=== PATIENT | female | born 1990 | race African-American/Black ===

== ENCOUNTER 2016-12-02 18:45 | Emergency (ER) | payer MEDICAID ==
[~2016-12-02] VITALS: Ht 162.6 cm; Wt 60.0 kg
[~2016-12-02 18:45] MED LIST: INFL100P IV; PERC5TAB12 PO; ZOFR4TAB3 SL
[2016-12-02 18:48] VITALS: BP 146/83; PULSE 123; RESP 14; TEMP 98.2; O2SAT 98
[2016-12-02] MEDS ORDERED: BACT800T5 PO (20:39)
[2016-12-02] MEDS ORDERED: CEPH-460 PO (20:39)
--- NOTE | 2016-12-02 20:42 | PD ---
HPI Chief Complaint: Skin Problem Time Seen by Provider: 20:40 Travel History International Travel<30 days: No Contact w/Intl Traveler<30days: No Traveled to known affect area: No History of Present Illness HPI 25-year-old black female presents to emergency Department with complaints of a area redness and pain to her right inner thigh for the last few days. She states that it started off as a small pruritic lump. She states that she scratched it vigorously. It now has become increasing painful, red and swollen. Some small amount of pus discharge. She denies any fever or chills. No nausea vomiting. Denies . PFSH Past Medical History Narrative Medical uLCERATIVE COLITIS, ANXIETY Anxiety: Yes Cancer: No Cardiovascular Problems: No Diminished Hearing: No Endocrine: No Immune Disorder: No Implanted Vascular Access Dvce: No Musculoskeletal: No Neurologic: No Reproductive: No Respiratory: No Immunizations Current: No Tetanus Vaccination: < 5 Years : 3 Para: 1 Miscarriage: 1 Ectopic : Yes Past Surgical History Gynecologic Surgery: Yes (left oopherctomy 2012) Pacemaker: No Other Surgery: No Social History Alcohol Use: No Tobacco Use: No Substance Use: No Allergies-Medications (Allergen,Severity, Reaction): Coded Allergies: No Known Allergies (Verified , 12/02/16) Reported Meds & Prescriptions Reported Meds & Active Scripts Active No Active Prescriptions or Reported Medications Review of Systems ROS Limitations: Unresponsive Except as stated in HPI: all other systems reviewed are Neg Physical Exam Narrative GENERAL: This is a well-nourished, well-developed patient, in no apparent distress. SKIN: Patient has a 5 cm area of erythema with a indurated area measuring 1.5 x 1.5 cm. It is tender. No warmth. No fluctuance or pointing. HEAD: Atraumatic. Normocephalic. EYES: PERRL, EOMI, no discharge or injection. No scleral icterus. EARS: Clear NOSE: Nasal turbinates appear normal. THROAT: Mucosa pink and moist. Airway patent. NECK: Trachea midline. supple, moves head freely. LUNGS: Clear to auscultation. CV: Regular in rhythm. ABDOMEN: Soft nontender. EXT: No clubbing cyanosis or edema. Data Data Last Documented VS Vital Signs Date Time Temp Pulse Resp B/P Pulse Ox O2 Delivery O2 Flow Rate FiO2 12/02/16 18:48 98.2 123 14 146/83 98 MDM Medical Decision Making Medical Screen Exam Complete: Yes Emergency Medical Condition: Yes Medical Record Reviewed: Yes Differential Diagnosis MDM: High Differential diagnoses: Abscess, folliculitis, cellulitis, lymphangitis, abrasion, contact dermatitis Narrative Course Patient appears to be having a developing abscess. Diagnosis Primary Impression: right inner thigh abscess Patient Instructions: General Instructions Additional Instructions: Rest. Elevation. keep clean and dry. Ichthammol-like drawing salve Daily wound care with soap, water. Three Advil every 6 hours. Bactrim DS and Keflex.. Follow-up with a primary care doctor in one week. Return to the ER for any problems. Med/Other Pt SpecificInfo: Prescription(s) given, Wound Care Scripts Cephalexin (Keflex)500 Mg [id number] Mg PO Q6H #28 CAP Prov:La Nena Gonzales MD 12/02/16 Sulfamethoxazole-Trimethoprim (Bactrim DS)800-160 Mg Tab1 Tab PO BID #14 TAB Prov:La Nena Gonzales MD 12/02/16 Disposition: 01 DISCHARGE HOME Condition: Stable Luan Leo Dec 02, 2016 20:42
== END 2016-12-02 20:51 | disposition home or self-care (01) ==
LOC: NEPB 18:45
DX: L02.415 Cutaneous abscess of right lower limb (principal)
CPT/HCPCS: 99283

== ENCOUNTER 2017-04-22 15:45 | Emergency (ER) | payer MEDICAID ==
[~2017-04-22] VITALS: Ht 162.6 cm; Wt 55.0 kg
[~2017-04-22 15:45] MED LIST changes: -PERC5TAB12 PO; -ZOFR4TAB3 SL
[2017-04-22 15:47] VITALS: BP 124/83; PULSE 101; RESP 16; TEMP 98.7; O2SAT 98
[2017-04-22] MEDS ORDERED: SODIUM CHLOR 0.9% 1000 ML INJ 1,000 ML IV SCH (17:44)
[2017-04-22] MEDS ORDERED: SODIUM CHLORIDE 0.9% FLUSH 10 ML FLUSH IV FLUSH PRN (17:45)
[2017-04-22] MEDS ORDERED: MORPHINE SULFATE 8 MG/ML INJ IV PUSH ONE ×2 (17:45→21:00)
[2017-04-22] MEDS ORDERED: ONDANSETRON HCL 4 MG/2 ML VIAL IVP ONE (17:45)
--- NOTE | 2017-04-22 17:59 | PD ---
HPI Chief Complaint: GI Complaint Time Seen by Provider: 17:36 Travel History International Travel<30 days: No Contact w/Intl Traveler<30days: No Traveled to known affect area: No History of Present Illness HPI Patient is a 26 year old female with history of Ulcerative Colitis, presents to ER with c/o of lower abdominal pain. She reports that she follows with Dr. Gab Tan and does take medications for her UC. Patient reports that she woke up this morning with nausea and vomiting and diarrhea. Reports that her diarrhea is not bloody. Reports that symptoms are similar to when she has had UC flair ups in the past. Patient denies fever/chills. Denies dysuria/urgency/ freq. No other c/o. PFSH Past Medical History Anxiety: Yes Cancer: No Cardiovascular Problems: No Diminished Hearing: No Endocrine: No Gastrointestinal Disorders: Yes (UC) Genitourinary: No Immune Disorder: Yes (UC) Implanted Vascular Access Dvce: No Musculoskeletal: No Neurologic: No Reproductive: No Respiratory: No Immunizations Current: No ?: Not LMP: ON DEPO : 3 Para: 1 Miscarriage: 2 Ectopic : Yes Past Surgical History Gynecologic Surgery: Yes (OOPHARECTONY left only) Pacemaker: No Other Surgery: Yes Social History Alcohol Use: No Tobacco Use: No Substance Use: No Allergies-Medications (Allergen,Severity, Reaction): Coded Allergies: No Known Allergies (Verified , 04/22/17) Reported Meds & Prescriptions Reported Meds & Active Scripts Active Tylenol-Codeine #3 (Acetaminophen-Codeine) 300-30 mg Tab 1 Tab PO Q6HR PRN Zofran (Ondansetron HCl) 4 Mg Tab 4 Mg PO Q6HR PRN Reported Remicade Inj (Infliximab) 100 Mg Inj 300 Mg IV EVERY 8 WEEKS Review of Systems General / Constitutional: No: Fever Eyes: No: Visual changes HENT: No: Headaches Cardiovascular: No: Chest Pain or Discomfort Respiratory: No: Shortness of Breath Gastrointestinal: Positive: Nausea, Vomiting, Diarrhea, Abdominal Pain Genitourinary: No: Dysuria Musculoskeletal: No: Pain Skin: No Rash Neurologic: No: Weakness Psychiatric: No: Depression Endocrine: No: Polydipsia Hematologic/Lymphatic: No: Easy Bruising Physical Exam Narrative GENERAL: Moderate distress SKIN: Focused skin assessment warm/dry. HEAD: Atraumatic. Normocephalic. EYES: Pupils equal and round. No scleral icterus. No injection or drainage. ENT: No nasal bleeding or discharge. Mucous membranes pink and moist. NECK: Trachea midline. No JVD. CARDIOVASCULAR: Regular rate and rhythm. No murmur appreciated. RESPIRATORY: No accessory muscle use. Clear to auscultation. Breath sounds equal bilaterally. GASTROINTESTINAL: Abdomen soft, diffuse lower abdominal tenderness, nondistended. Hepatic and splenic margins not palpable. MUSCULOSKELETAL: No obvious deformities. No clubbing. No cyanosis. No edema. NEUROLOGICAL: Awake and alert. No obvious cranial nerve deficits. Motor grossly within normal limits. Normal speech. PSYCHIATRIC: Appropriate mood and affect; insight and judgment normal. Data Data Last Documented VS Vital Signs Date Time Temp Pulse Resp B/P Pulse Ox O2 Delivery O2 Flow Rate FiO2 04/22/17 19:44 88 18 141/76 100 Room Air 04/22/17 15:47 98.7 Orders Complete Blood Count With Diff (04/22/17 17:44) Comprehensive Metabolic Panel (04/22/17 17:44) Lipase (04/22/17 17:44) Prothrombin Time / Inr (Pt) (04/22/17 17:44) Act Partial Throm Time (Ptt) (04/22/17 17:44) Urinalysis - C+S If Indicated (04/22/17 17:44) Ct Abd/Pel W Iv Contrast(Rout) (04/22/17 17:44) Iv Access Insert/Monitor (04/22/17 17:44) Ecg Monitoring (04/22/17 17:44) Oximetry (04/22/17 17:44) NPO (04/22/17 17:44) Ondansetron Inj (Zofran Inj) (04/22/17 17:45) Sodium Chlor 0.9% 1000 Ml Inj (Ns 1000 M (04/22/17 17:44) Sodium Chloride 0.9% Flush (Ns Flush) (04/22/17 17:45) Ed Urine Pregnancytest Poc (04/22/17 17:44) Morphine Inj (Morphine Inj) (04/22/17 17:45) Promethazine (Phenergan) (04/22/17 18:30) Lorazepam Inj (Ativan Inj) (04/22/17 19:00) Sodium Chlor 0.9% 1000 Ml Inj (Ns 1000 M (04/22/17 19:15) Iohexol 350 Inj (Omnipaque 350 Inj) (04/22/17 19:58) Morphine Inj (Morphine Inj) (04/22/17 21:00) Ns (Bolus) Inj (04/22/17 21:30) Labs Laboratory Tests Test 04/22/17 04/22/17 17:50 20:33 White Blood Count 9.0 TH/MM3 Red Blood Count 4.18 MIL/MM3 Hemoglobin 11.2 GM/DL Hematocrit 33.9 % Mean Corpuscular Volume 81.1 FL Mean Corpuscular Hemoglobin 26.9 PG Mean Corpuscular Hemoglobin 33.1 % Concent Red Cell Distribution Width 16.4 % Platelet Count 440 TH/MM3 Mean Platelet Volume 8.0 FL Neutrophils (%) (Auto) 73.4 % Lymphocytes (%) (Auto) 20.6 % Monocytes (%) (Auto) 5.3 % Eosinophils (%) (Auto) 0.3 % Basophils (%) (Auto) 0.4 % Neutrophils # (Auto) 6.6 TH/MM3 Lymphocytes # (Auto) 1.8 TH/MM3 Monocytes # (Auto) 0.5 TH/MM3 Eosinophils # (Auto) 0.0 TH/MM3 Basophils # (Auto) 0.0 TH/MM3 CBC Comment DIFF FINAL Differential Comment Prothrombin Time 11.7 SEC Prothromb Time International 1.1 RATIO Ratio Activated Partial 28.9 SEC Thromboplast Time Sodium Level 136 MEQ/L Potassium Level 3.4 MEQ/L Chloride Level 103 MEQ/L Carbon Dioxide Level 22.2 MEQ/L Anion Gap 11 MEQ/L Blood Urea Nitrogen 10 MG/DL Creatinine 0.54 MG/DL Estimat Glomerular Filtration 164 ML/MIN Rate Random Glucose 95 MG/DL Calcium Level 8.9 MG/DL Total Bilirubin 0.4 MG/DL Aspartate Amino Transf 18 U/L (AST/SGOT) Alanine Aminotransferase 22 U/L (ALT/SGPT) Alkaline Phosphatase 72 U/L Total Protein 8.5 GM/DL Albumin 3.7 GM/DL Lipase 85 U/L Urine Color LIGHT-YELLOW Urine Turbidity CLEAR Urine pH 6.5 Urine Specific [place] 1.043 Urine Protein NEG mg/dL Urine Glucose (UA) NEG mg/dL Urine Ketones 40 mg/dL Urine Occult Blood TRACE Urine Nitrite NEG Urine Bilirubin NEG Urine Urobilinogen LESS THAN 2.0 MG/DL Urine Leukocyte Esterase NEG Urine RBC 1 /hpf Urine WBC LESS THAN 1 /hpf Urine Squamous Epithelial 1 /hpf Cells Urine Hyaline Casts 1 /lpf Urine Mucus FEW /lpf Microscopic Urinalysis Comment CULT NOT INDICATED MDM Medical Decision Making Medical Screen Exam Complete: Yes Emergency Medical Condition: Yes Interpretation(s) Vital Signs Date Time Temp Pulse Resp B/P Pulse Ox O2 Delivery O2 Flow Rate FiO2 04/22/17 15:47 98.7 101 16 124/83 98 Room Air Differential Diagnosis Differential includes ulcerative colitis, colitis, uti, viral syndrome, gastroenteritis Narrative Course Patient is a 26 year old female with history of UC, presents to ER with c/o of lower abdominal pain. Reports that symptoms began this am, patient uncomfortable at bedside, lab work including ct ordered. IVF and pain medications and antiemetics ordered. Vital Signs Date Time Temp Pulse Resp B/P Pulse Ox O2 Delivery O2 Flow Rate FiO2 04/22/17 19:44 88 18 141/76 100 Room Air 04/22/17 19:38 82 100 Room Air 04/22/17 18:19 100 Room Air 04/22/17 15:47 98.7 101 16 124/83 98 Room Air Laboratory Tests Test 04/22/17 04/22/17 17:50 20:33 White Blood Count 9.0 TH/MM3 (4.0-11.0) Red Blood Count 4.18 MIL/MM3 (4.00-5.30) Hemoglobin 11.2 GM/DL (11.6-15.3) Hematocrit 33.9 % (35.0-46.0) Mean Corpuscular Volume 81.1 FL (80.0-100.0) Mean Corpuscular Hemoglobin 26.9 PG (27.0-34.0) Mean Corpuscular Hemoglobin 33.1 % Concent (32.0-36.0) Red Cell Distribution Width 16.4 % (11.6-17.2) Platelet Count 440 TH/MM3 (150-450) Mean Platelet Volume 8.0 FL (7.0-11.0) Neutrophils (%) (Auto) 73.4 % (16.0-70.0) Lymphocytes (%) (Auto) 20.6 % (9.0-44.0) Monocytes (%) (Auto) 5.3 % (0.0-8.0) Eosinophils (%) (Auto) 0.3 % (0.0-4.0) Basophils (%) (Auto) 0.4 % (0.0-2.0) Neutrophils # (Auto) 6.6 TH/MM3 (1.8-7.7) Lymphocytes # (Auto) 1.8 TH/MM3 (1.0-4.8) Monocytes # (Auto) 0.5 TH/MM3 (0-0.9) Eosinophils # (Auto) 0.0 TH/MM3 (0-0.4) Basophils # (Auto) 0.0 TH/MM3 (0-0.2) CBC Comment DIFF FINAL Differential Comment Prothrombin Time 11.7 SEC (9.8-11.6) Prothromb Time International 1.1 RATIO Ratio Activated Partial 28.9 SEC Thromboplast Time (24.3-30.1) Sodium Level 136 MEQ/L (136-145) Potassium Level 3.4 MEQ/L (3.5-5.1) Chloride Level 103 MEQ/L (98-107) Carbon Dioxide Level 22.2 MEQ/L (21.0-32.0) Anion Gap 11 MEQ/L (5-15) Blood Urea Nitrogen 10 MG/DL (7-18) Creatinine 0.54 MG/DL (0.50-1.00) Estimat Glomerular Filtration 164 ML/MIN Rate (>89) Random Glucose 95 MG/DL (74-106) Calcium Level 8.9 MG/DL (8.5-10.1) Total Bilirubin 0.4 MG/DL (0.2-1.0) Aspartate Amino Transf 18 U/L (15-37) (AST/SGOT) Alanine Aminotransferase 22 U/L (10-53) (ALT/SGPT) Alkaline Phosphatase 72 U/L (45-117) Total Protein 8.5 GM/DL (6.4-8.2) Albumin 3.7 GM/DL (3.4-5.0) Lipase 85 U/L (73-393) Urine Color LIGHT-YELLOW (YELLW/STRAW) Urine Turbidity CLEAR (CLEAR) Urine pH 6.5 (5.0-8.5) Urine Specific [place] 1.043 (1.002-1.035) Urine Protein NEG mg/dL (NEG-TRACE) Urine Glucose (UA) NEG mg/dL (NEG) Urine Ketones 40 mg/dL (NEG) Urine Occult Blood TRACE (NEG) Urine Nitrite NEG (NEG) Urine Bilirubin NEG (NEG) Urine Urobilinogen LESS THAN 2.0 MG/DL (LESS THAN 2.0) Urine Leukocyte Esterase NEG (NEG) Urine RBC 1 /hpf (0-3) Urine WBC LESS THAN 1 /hpf (0-5) Urine Squamous Epithelial 1 /hpf (0-5) Cells Urine Hyaline Casts 1 /lpf (RARE) Urine Mucus FEW /lpf (OCC) Microscopic Urinalysis Comment CULT NOT INDICATED Last Impressions Abdomen/Pelvis CT 04/22/17 3066 Signed Impressions: Service Date/Time: Saturday, April 22, 2017 19:50 - CONCLUSION: 1. Abnormal bowel wall thickening seen circumferentially involving the rectum and adjacent inflammatory stranding and hyperemia. This is consistent with proctitis. No obvious abscess or free air. Emeterio Roy MD Patient re-evaluated, all labs and studies reviewed as well as incidental findings. Patient with CT findings, abnormal bowel wall thickening seen circumferentially involving the rectum and adjacent inflammatory stranding and hyperemia consistent with proctitis most likely from her UC. I did give patient a copy of her CT report. Patient understands need to follow-up with her GI physician as soon as possible. Signs and symptoms of when to return to emergency room was reviewed patient in detail. Diagnosis Primary Impression: Abdominal pain Qualified Code: R10.84 - Generalized abdominal pain Additional Impressions: Proctitis Dehydration Nausea & vomiting Patient Instructions: Narcotic given in the ED, General Instructions Additional Instructions: Please give patient a copy of her lab work and studies at discharge Please return to ER as needed Please follow up with your design assistant as soon as possible Return to ER if symptoms worsen or persist Please follow up with your primary care doctor Med/Other Pt SpecificInfo: Prescription(s) given Scripts Acetaminophen-Codeine (Tylenol-Codeine #3)300-30 mg Tab1 Tab PO Q6HR PRN (PAIN) #6 TAB Ref 0 Prov:Nabila Hackett DO 04/22/17 Ondansetron (Zofran)4 Mg Tab4 Mg PO Q6HR PRN (NAUSEA OR VOMITING) #12 TAB Ref 0 Prov:Nabila Hackett DO 04/22/17 Disposition: 01 DISCHARGE HOME Condition: Stable Nabila Hackett DO Apr 22, 2017 17:59
[2017-04-22 18:19] VITALS: O2SAT 100
[2017-04-22 18:21] LABS: AUTOMATED NEUTROPHIL # 6.6 TH/MM3 (1.8-7.7); BASOPHIL % 0.4 % (0.0-2.0); EOSINOPHIL % 0.3 % (0.0-4.0); HEMATOCRIT 33.9 % (35.0-46.0); HEMO FLAGS DIFF FINAL; LYMPH % 20.6 % (9.0-44.0); LYMPHOCYTE # 1.8 TH/MM3 (1.0-4.8); MEAN CELL VOLUME 81.1 FL (80.0-100.0); MEAN CORPUSCULAR HEMOGLOBIN 26.9 PG (27.0-34.0); MEAN CORPUSCULAR HGB CONC 33.1 % (32.0-36.0); MONO % 5.3 % (0.0-8.0); NEUT % 73.4 % (16.0-70.0); PLATELET COUNT 440 TH/MM3 (150-450); RED BLOOD COUNT 4.18 MIL/MM3 (4.00-5.30); RED CELL DISTRIBUTION WIDTH 16.4 % (11.6-17.2)
[2017-04-22] MEDS ORDERED: PROMETHAZINE HCL 25 MG TAB PO ONE (18:30)
[2017-04-22 18:37] LABS: APTT (PATIENT) 28.9 SEC (24.3-30.1); INTERNATIONAL NORMALIZED RATIO 1.1 RATIO; PROTHROMBIN TIME - PATIENT 11.7 SEC (9.8-11.6)
[2017-04-22 18:38] LABS: ANION GAP 11 MEQ/L (5-15); AST (GOT) 18 U/L (15-37); BICARBONATE 22.2 MEQ/L (21.0-32.0); BLOOD UREA NITROGEN 10 MG/DL (7-18); CHLORIDE 103 MEQ/L (98-107); GLOMERULAR FILTRATION RATE 164 ML/MIN (>89); POTASSIUM 3.4 MEQ/L (3.5-5.1); SODIUM (NA) 136 MEQ/L (136-145)
[2017-04-22 18:41] LABS: ALKALINE PHOSPHATASE 72 U/L (45-117); ALT (GPT) 22 U/L (10-53); TOTAL BILIRUBIN ADULT 0.4 MG/DL (0.2-1.0)
[2017-04-22] MEDS ORDERED: LORazepam 2 MG/ML VIAL IV PUSH ONE (19:00)
[2017-04-22] MEDS ORDERED: SODIUM CHLOR 0.9% 1000 ML INJ 1,000 ML IV ONE ×2 (19:15→21:30)
[2017-04-22 19:38] VITALS: PULSE 82; O2SAT 100
[2017-04-22 19:44] VITALS: BP 141/76; PULSE 88; RESP 18; O2SAT 100
[2017-04-22] MEDS ORDERED: IOHEXOL 350 MG/ML 10 ML VIAL (for RAD DIAG) IV ONE (19:58)
--- NOTE | 2017-04-22 20:13 | RADRPT ---
EXAM DATE/TIME: 04/22/2017 19:50 [place] COMPARISON: No previous studies available for comparison. INDICATIONS : Nausea,vomiting and diarrhea today IV CONTRAST: 71 cc Omnipaque 350 (iohexol) IV ORAL CONTRAST: No oral contrast ingested. RADIATION DOSE: 6.64 CTDIvol (mGy) MEDICAL HISTORY : Crohn's disease. SURGICAL HISTORY : oopharectomy Left ENCOUNTER: Initial ACUITY: 1 day PAIN SCALE: 10/10 LOCATION: Abdomen TECHNIQUE: Volumetric scanning of the abdomen and pelvis was performed. Using automated exposure control and ad justment of the mA and/or kV according to patient size, radiation dose was kept as low as reasonably achievable to obtain optimal diagnostic quality images. DICOM format image data is available electro nically for review and comparison. FINDINGS: Liver, gallbladder, spleen, pancreas, adrenal glands are unremarkable. No evidence of bowel obstructi on, free fluid or free air. Kidneys are unremarkable. No adenopathy or aneurysm. Urinary bladder, [place] unremarkable. The ovaries are not clearly visualized. There is abnormal circumferential bowel wal l thickening, hyperemia and perirectal fat stranding identified. The bowel wall thickening is noted i nvolving the rectum. Proctitis is suspected. CONCLUSION: 1. Abnormal bowel wall thickening seen circumferentially involving the rectum and adjacent inflammato ry stranding and hyperemia. This is consistent with proctitis. No obvious abscess or free air. Emeterio Roy MD on April 22, 2017 at 20:09 Board Certified Radiologist. This report was verified electronically.
[2017-04-22 20:58] LABS: BLOOD, URINE TRACE (NEG); COMMENT (UR) CULT NOT INDICATED; CULTURE IF INDICATED CULT NOT INDICATED; GLUCOSE,URINE NEG (NEG); HYALINE CAST, URINE 1 /lpf (RARE); KETONE, URINE 40 mg/dL (NEG); MUCUS URINE FEW /lpf (OCC); NITRITE,URINE NEG (NEG); PH, URINE 6.5 (5.0-8.5); SQUAMOUS EPITHELIAL CELL URINE 1 /hpf (0-5); URINE COLOR LIGHT-YELLOW (YELLW/STRAW)
[2017-04-22] MEDS ORDERED: TYLETAB34 PO (21:15)
[2017-04-22] MEDS ORDERED: ZOFR4TAB PO (21:15)
== END 2017-04-22 22:20 | disposition home or self-care (01) ==
LOC: NEPD 15:45
DX: R10.84 Generalized abdominal pain (principal); K62.89 Other specified diseases of anus and rectum; E86.0 Dehydration; R11.2 Nausea with vomiting, unspecified; R19.7 Diarrhea, unspecified; F41.9 Anxiety disorder, unspecified; Z79.899 Other long term (current) drug therapy
CPT/HCPCS: 74177; 80053; 81001; 83690; 84703; 85025; 85610; 85730; 96361; 96374; 96375; 96376; J2060; J2270; J2405; J7030; Q0169; Q9967

== ENCOUNTER 2017-04-24 09:10 | Observation (INO) | payer MEDICAID ==
[~2017-04-24 09:10] MED LIST changes: +TYLETAB34 PO; +ZOFR4TAB PO
[2017-04-24 09:13] VITALS: BP 130/90; PULSE 93; RESP 24; TEMP 98.7; O2SAT 100
--- NOTE | 2017-04-24 09:35 | PD ---
HPI Chief Complaint: GI Complaint Time Seen by Provider: 09:27 Travel History International Travel<30 days: No Contact w/Intl Traveler<30days: No Traveled to known affect area: No History of Present Illness HPI 26-year-old female came to the emergency room with history of vomiting, abdominal pain that has been going on for past 3-4 days. Patient was seen in this emergency room 2 days ago for the same thing. She had blood work and CAT scan done at that time. Everything was within normal limit and she was discharged home. She went back to [facility] emergency room yesterday where again similar workup was initiated and she was discharged home. Today she is here because she continues to vomit. All this history has been given by her mother since patient seems to be in distress and is curled up in a position under a thick blanket that she has brought from home. Mom also says that she has been very depressed and anxious for white some time. She has a 10- month-old baby. Upon asking mom said she has not been suicidal. She does have history of depression and anxiety and was supposed to be on Xanax and a lot of that was stopped during the and patient never resumed it since she does not have a primary care doctor. Vital signs are stable. [facility] Past Medical History Narrative Medical List of her past medical, surgical, social and family history reviewed from the nursing note. Anxiety: Yes Cancer: No Cardiovascular Problems: No Diminished Hearing: No Endocrine: No Gastrointestinal Disorders: Yes (UC) Genitourinary: No Immune Disorder: Yes (UC) Implanted Vascular Access Dvce: No Musculoskeletal: No Neurologic: No Reproductive: No Respiratory: No Immunizations Current: No ?: Not LMP: "ON DEPO" : 3 Para: 1 Miscarriage: 2 Ectopic : Yes Past Surgical History Gynecologic Surgery: Yes (OOPHARECTONY left only) Pacemaker: No Other Surgery: Yes Social History Alcohol Use: No Tobacco Use: No Substance Use: No Allergies-Medications (Allergen,Severity, Reaction): Coded Allergies: No Known Allergies (Verified , 04/24/17) Comments No known drug allergies. Reported Meds & Prescriptions Reported Meds & Active Scripts Active Reported Remicade Inj (Infliximab) 100 Mg Inj 300 Mg IV EVERY 8 WEEKS Narrative Medication List of her home medications reviewed from the nursing note. Review of Systems Except as stated in HPI: all other systems reviewed are Neg Physical Exam Narrative GENERAL: Prefers to keep her eyes closed and curled in a position. Not answering questions SKIN: Focused skin assessment warm/dry. HEAD: Atraumatic. Normocephalic. EYES: Pupils equal and round. No scleral icterus. No injection or drainage. ENT: No nasal bleeding or discharge. Mucous membranes pink and moist. NECK: Trachea midline. No JVD. CARDIOVASCULAR: Regular rate and rhythm. No murmur appreciated. RESPIRATORY: No accessory muscle use. Clear to auscultation. Breath sounds equal bilaterally. GASTROINTESTINAL: Abdomen soft, non-tender, nondistended. Hepatic and splenic margins not palpable. MUSCULOSKELETAL: No obvious deformities. No clubbing. No cyanosis. No edema. NEUROLOGICAL: Awake and alert. No obvious cranial nerve deficits. Motor grossly within normal limits. Normal speech. PSYCHIATRIC: Appropriate mood and affect; insight and judgment normal. Data Data Last Documented VS Vital Signs Date Time Temp Pulse Resp B/P Pulse Ox O2 Delivery O2 Flow Rate FiO2 04/24/17 11:40 70 18 143/87 99 Room Air 04/24/17 10:03 98.3 Orders Complete Blood Count With Diff (04/24/17 09:39) Comprehensive Metabolic Panel (04/24/17 09:39) Lipase (04/24/17 09:39) Iv Access Insert/Monitor (04/24/17 09:39) Ecg Monitoring (04/24/17 09:39) Oximetry (04/24/17 09:39) Sodium Chlor 0.9% 1000 Ml Inj (Ns 1000 M (04/24/17 09:39) Sodium Chloride 0.9% Flush (Ns Flush) (04/24/17 09:45) Metoclopramide Inj (Reglan Inj) (04/24/17 09:45) Urinalysis - C+S If Indicated (04/24/17 09:39) Drug Screen, Random Urine (04/24/17 09:39) Alprazolam (Xanax) (04/24/17 10:30) Sodium Chlor 0.9% 1000 Ml Inj (Ns 1000 M (04/24/17 12:15) Admit Order (Ed Use Only) (04/24/17 12:08) Place In Observation (04/24/17 ) Vital Signs (Adult) Q4H (04/24/17 12:09) Activity Oob Ad Shayy (04/24/17 12:09) Intake + Output GINGER.QSHIFT (04/24/17 12:09) Notify Dr: Other (04/24/17 12:09) Diet Npo (04/24/17 Lunch) Sodium Chlor 0.9% 1000 Ml Inj (Ns 1000 M (04/24/17 12:09) Sodium Chloride 0.9% Flush (Ns Flush) (04/24/17 12:15) Sodium Chloride 0.9% Flush (Ns Flush) (04/24/17 21:00) Acetaminophen (Tylenol) (04/24/17 12:15) Ondansetron Inj (Zofran Inj) (04/24/17 12:15) Comprehensive Metabolic Panel (04/25/17 06:00) Complete Blood Count With Diff (04/25/17 06:00) Dietary (Dietitian) Consult (04/24/17 12:09) Scd Bilateral/Knee High GINGER.BID (04/24/17 12:09) Naloxone Inj (Narcan Inj) (04/24/17 12:15) Docusate Sodium-Senna (Pinky-Colace) (04/24/17 21:00) Magnesium Hydroxide Liq (Milk Of Magnesi (04/24/17 12:15) Sennosides (Senokot) (04/24/17 12:15) Bisacodyl Supp (Dulcolax Supp) (04/24/17 12:15) Lactulose Liq (Lactulose Liq) (04/24/17 12:15) Labs Laboratory Tests Test 04/24/17 04/24/17 09:59 11:20 White Blood Count 6.8 TH/MM3 Red Blood Count 4.28 MIL/MM3 Hemoglobin 11.5 GM/DL Hematocrit 34.6 % Mean Corpuscular Volume 80.9 FL Mean Corpuscular Hemoglobin 26.9 PG Mean Corpuscular Hemoglobin 33.2 % Concent Red Cell Distribution Width 16.5 % Platelet Count 413 TH/MM3 Mean Platelet Volume 8.0 FL Neutrophils (%) (Auto) 58.4 % Lymphocytes (%) (Auto) 33.5 % Monocytes (%) (Auto) 7.6 % Eosinophils (%) (Auto) 0.3 % Basophils (%) (Auto) 0.2 % Neutrophils # (Auto) 4.0 TH/MM3 Lymphocytes # (Auto) 2.3 TH/MM3 Monocytes # (Auto) 0.5 TH/MM3 Eosinophils # (Auto) 0.0 TH/MM3 Basophils # (Auto) 0.0 TH/MM3 CBC Comment DIFF FINAL Differential Comment Sodium Level 133 MEQ/L Potassium Level 3.4 MEQ/L Chloride Level 97 MEQ/L Carbon Dioxide Level 23.7 MEQ/L Anion Gap 12 MEQ/L Blood Urea Nitrogen 9 MG/DL Creatinine 0.62 MG/DL Estimat Glomerular Filtration 140 ML/MIN Rate Random Glucose 80 MG/DL Calcium Level 8.7 MG/DL Magnesium Level 2.2 MG/DL Total Bilirubin 0.8 MG/DL Aspartate Amino Transf 12 U/L (AST/SGOT) Alanine Aminotransferase 22 U/L (ALT/SGPT) Alkaline Phosphatase 76 U/L Total Protein 9.3 GM/DL Albumin 3.9 GM/DL Lipase 270 U/L Urine Color LIGHT-YELLOW Urine Turbidity HAZY Urine pH 6.5 Urine Specific [place] 1.012 Urine Protein TRACE mg/dL Urine Glucose (UA) NEG mg/dL Urine Ketones 80 mg/dL Urine Occult Blood SMALL Urine Nitrite NEG Urine Bilirubin NEG Urine Urobilinogen LESS THAN 2.0 MG/DL Urine Leukocyte Esterase NEG Urine RBC LESS THAN 1 /hpf Urine WBC 2 /hpf Urine Squamous Epithelial 2 /hpf Cells Urine Transitional Epithelial <1 /hpf Cells Urine Bacteria RARE /hpf Urine Mucus FEW /lpf Microscopic Urinalysis Comment CULT NOT INDICATED Urine Opiates Screen NEG Urine Barbiturates Screen NEG Urine Amphetamines Screen NEG Urine Benzodiazepines Screen POS Urine Cocaine Screen NEG Urine Cannabinoids Screen NEG [facility] Medical Decision Making Medical Screen Exam Complete: Yes Emergency Medical Condition: Yes Medical Record Reviewed: Yes Differential Diagnosis Acute gastritis, cyclic vomiting syndrome, major depression, electrolyte abnormality, dehydration Narrative Course 12:18 PM patient was given Reglan for nausea since as per the mother Zofran didn 't seem to help last time. She was also given IV fluid bolus. Blood test results came back and she had mild hyponatremia and hypokalemia. UA shows ketonuria. Patient was given by mouth challenge and she started vomiting again after that. At this point I decided to admit her since this is her third visit to the emergency room. She obviously is failing the outpatient treatment at this point. Spoke with the hospitalist was accepted the case. Procedures EKG Prior to Arrival: No Diagnosis Primary Impression: Intractable vomiting Qualified Code: G43.A1 - Intractable cyclical vomiting with nausea Additional Impressions: Abdominal pain Qualified Code: R10.84 - Generalized abdominal pain Dehydration Ketonuria Failure of outpatient treatment Admitting Information Admitting Physician Requests: Ryann Varela MD Apr 24, 2017 09:35
[2017-04-24] MEDS ORDERED: SODIUM CHLOR 0.9% 1000 ML INJ 1,000 ML IV SCH (09:39)
[2017-04-24] MEDS ORDERED: METOCLOPRAMIDE HCL 10 MG/2 ML VIAL IV PUSH ONE (09:45)
[2017-04-24] MEDS ORDERED: SODIUM CHLORIDE 0.9% FLUSH 10 ML FLUSH IV FLUSH PRN ×2 (09:45→12:15)
[2017-04-24 10:03] VITALS: BP 145/86; PULSE 88; RESP 18; TEMP 98.3; O2SAT 100
[2017-04-24 10:17] LABS: BASOPHIL % 0.2 % (0.0-2.0); EOSINOPHIL % 0.3 % (0.0-4.0); HEMATOCRIT 34.6 % (35.0-46.0); HEMO FLAGS DIFF FINAL; LYMPH % 33.5 % (9.0-44.0); LYMPHOCYTE # 2.3 TH/MM3 (1.0-4.8); MEAN CELL VOLUME 80.9 FL (80.0-100.0); MEAN CORPUSCULAR HEMOGLOBIN 26.9 PG (27.0-34.0); MEAN CORPUSCULAR HGB CONC 33.2 % (32.0-36.0); MONO % 7.6 % (0.0-8.0); NEUT % 58.4 % (16.0-70.0); PLATELET COUNT 413 TH/MM3 (150-450); RED BLOOD COUNT 4.28 MIL/MM3 (4.00-5.30); RED CELL DISTRIBUTION WIDTH 16.5 % (11.6-17.2); WHITE BLOOD COUNT 6.8 TH/MM3 (4.0-11.0)
[2017-04-24] MEDS ORDERED: ALPRAZolam 0.5 MG TAB PO ONE (10:30)
[2017-04-24 10:37] LABS: ALKALINE PHOSPHATASE 76 U/L (45-117); ALT (GPT) 22 U/L (10-53); ANION GAP 12 MEQ/L (5-15); AST (GOT) 12 U/L (15-37); BICARBONATE 23.7 MEQ/L (21.0-32.0); BLOOD UREA NITROGEN 9 MG/DL (7-18); CHLORIDE 97 MEQ/L (98-107); GLOMERULAR FILTRATION RATE 140 ML/MIN (>89); POTASSIUM 3.4 MEQ/L (3.5-5.1); SODIUM (NA) 133 MEQ/L (136-145); TOTAL BILIRUBIN ADULT 0.8 MG/DL (0.2-1.0)
[2017-04-24 11:40] VITALS: BP 143/87; PULSE 70; RESP 18; O2SAT 99
[2017-04-24 11:43] LABS: BACTERIA, URINE RARE /hpf; BLOOD, URINE SMALL (NEG); GLUCOSE,URINE NEG (NEG); KETONE, URINE 80 mg/dL (NEG); MUCUS URINE FEW /lpf (OCC); NITRITE,URINE NEG (NEG); PH, URINE 6.5 (5.0-8.5); SQUAMOUS EPITHELIAL CELL URINE 2 /hpf (0-5); TRANSITIONAL EPI CELLS, URINE <1 /hpf; URINE COLOR LIGHT-YELLOW (YELLW/STRAW)
[2017-04-24 11:46] LABS: COMMENT (UR) CULT NOT INDICATED; CULTURE IF INDICATED CULT NOT INDICATED
[2017-04-24] MEDS: SODIUM CHLOR 0.9% 1000 ML INJ 1,000 ML IV SCH (12:09)
[2017-04-24] MEDS ORDERED: NALOXONE HCL 0.4 MG/ML AMP IV PRN (12:15)
[2017-04-24] MEDS ORDERED: LACTULOSE SYRUP 20 GM/30 ML CUP PO PRN (12:15)
[2017-04-24] MEDS ORDERED: SENNOSIDES 8.6 MG TAB PO PRN (12:15)
[2017-04-24] MEDS ORDERED: ACETAMINOPHEN 325 MG TAB PO PRN (12:15)
[2017-04-24] MEDS ORDERED: SODIUM CHLOR 0.9% 1000 ML INJ 1,000 ML IV ONE (12:15)
[2017-04-24] MEDS ORDERED: MAGNESIUM HYDROXIDE SUSP 30 ML CUP PO PRN (12:15)
[2017-04-24] MEDS ORDERED: BISACODYL 10 MG SUPP RECTAL PRN (12:15)
--- NOTE | 2017-04-24 12:23 | HHI.HP ---
Nausea, vomit and Diarrhea HPI Service [facility] Primary Care Physician No Primary Care Physician Admission Diagnosis intractable vomiting and abdominal pain, dehydration Diagnoses: Chief Complaint: Intractable Nausea, vomit and Diarrhea. Travel History International Travel<30 Days: No Contact w/Intl Traveler <30 Da: No Traveled to Known Affected Are: No History of Present Illness This is a pleasant 26 y/o Female with Ulcerative Colitis, presents to Emergency Room with Left lower abdominal pain She came to ER on 04/22/17 with Nausea and vomit and Diarrhea, she was given symptomatic medicine and was discharged Home and today came back to the Hospital with the same symptomatology. associated abdominal pain for the last 3 to 4 days She was seen at [facility] Emergency Room yesterday and was discharged home, she continue vomiting. The patient has been anxious and depressed, She has a [id number] baby. Upon asking mom said she has not been suicidal. She does have history of depression and anxiety and was supposed to be on Xanax and a lot of that was stopped during the and patient never resumed it since she does not have a primary care doctor. Vital signs are stable. The patient was seen in Emergency room in the presence of her mother Mrs. Tali Sorto, confirm what was expressed by her Daughter, she also states she had as GI specialist Doctor Gba De La Paz but now has not GI specialist due to that lost coverage asking for pain medicine. Review of Systems Gastrointestinal: COMPLAINS OF: Diarrhea, Nausea, Vomiting Except as stated in HPI: all other systems reviewed are Neg Past Family Social History Past Medical History Anxiety Ulcerative Colitis Past Surgical History Left Oophorectomy C Section Reported Medications Reported Meds & Active Scripts Active Reported Remicade Inj (Infliximab) 100 Mg Inj 300 Mg IV EVERY 8 WEEKS Allergies: Coded Allergies: No Known Allergies (Verified , 04/24/17) Active Ordered Medications Current Medications Medications (Trade) Dose Ordered Sig/Uziel Route Start Time Stop Time Status Last Admin Sodium Chloride 2 ml 2 ml UNSCH PRN IV FLUSH 04/24/17 09:45 Sodium Chloride 1,000 ml @ 999 mls/hr BOLUS ONCE IV 04/24/17 12:15 04/24/17 13:15 (NS 1000 ml Inj) 1,000 ml @ 100 mls/hr Q10H IV 04/24/17 12:09 UNV (NS Flush) 2 ml UNSCH PRN IV FLUSH 04/24/17 12:15 UNV (NS Flush) 2 ml BID IV FLUSH 04/24/17 21:00 UNV (Tylenol) 650 mg Q4H PRN PO 04/24/17 12:15 UNV (Zofran Inj) 4 mg Q6H PRN IVP 04/24/17 12:15 UNV (Narcan Inj) 0.4 mg UNSCH PRN IV 04/24/17 12:15 UNV (Pinky-Colace) 1 tab BID PO 04/24/17 21:00 UNV (Milk Of Magnesia Liq) 30 ml Q12H PRN PO 04/24/17 12:15 UNV (Senokot) 17.2 mg Q12H PRN PO 04/24/17 12:15 UNV (Dulcolax Supp) 10 mg DAILY PRN RECTAL 04/24/17 12:15 UNV (Lactulose Liq) 30 ml DAILY PRN PO 04/24/17 12:15 UNV Family History Asked to the patient and Mother and denied. Social History Denies any toxic habits. Physical Exam Vital Signs Vital Signs Date Time Temp Pulse Resp B/P Pulse Ox O2 Delivery O2 Flow Rate FiO2 04/24/17 11:40 70 18 143/87 99 Room Air 04/24/17 10:03 98.3 88 18 145/86 100 Room Air 04/24/17 09:13 98.7 93 24 130/90 100 Room Air Physical Exam GENERAL: This is a well-nourished, well-developed patient, in no apparent distress. SKIN: No rashes, ecchymoses or lesions. Cool and dry. HEAD: Atraumatic. Normocephalic. No temporal or scalp tenderness. EYES: Pupils equal round and reactive. Dry mucous membranes. ENT: Nose without bleeding, purulent drainage or septal hematoma. Throat without erythema, tonsillar hypertrophy or exudate. Uvula midline. Airway patent. NECK: Trachea midline. No JVD or lymphadenopathy. Supple, nontender, no meningeal signs. CARDIOVASCULAR: Regular rate and rhythm without murmurs, gallops, or rubs. RESPIRATORY: Clear to auscultation. Breath sounds equal bilaterally. No wheezes , rales, or rhonchi. GASTROINTESTINAL: Abdomen soft, moderate diffuse tenderness. MUSCULOSKELETAL: Extremities without clubbing, cyanosis, or edema. NEUROLOGICAL: Awake and alert No focal deficits. Laboratory Laboratory Tests Test 04/24/17 04/24/17 09:59 11:20 White Blood Count 6.8 Red Blood Count 4.28 Hemoglobin 11.5 Hematocrit 34.6 Mean Corpuscular Volume 80.9 Mean Corpuscular Hemoglobin 26.9 Mean Corpuscular Hemoglobin 33.2 Concent Red Cell Distribution Width 16.5 Platelet Count 413 Mean Platelet Volume 8.0 Neutrophils (%) (Auto) 58.4 Lymphocytes (%) (Auto) 33.5 Monocytes (%) (Auto) 7.6 Eosinophils (%) (Auto) 0.3 Basophils (%) (Auto) 0.2 Neutrophils # (Auto) 4.0 Lymphocytes # (Auto) 2.3 Monocytes # (Auto) 0.5 Eosinophils # (Auto) 0.0 Basophils # (Auto) 0.0 CBC Comment DIFF FINAL Differential Comment Sodium Level 133 Potassium Level 3.4 Chloride Level 97 Carbon Dioxide Level 23.7 Anion Gap 12 Blood Urea Nitrogen 9 Creatinine 0.62 Estimat Glomerular Filtration 140 Rate Random Glucose 80 Calcium Level 8.7 Total Bilirubin 0.8 Aspartate Amino Transf 12 (AST/SGOT) Alanine Aminotransferase 22 (ALT/SGPT) Alkaline Phosphatase 76 Total Protein 9.3 Albumin 3.9 Lipase 270 Urine Color LIGHT-YELLOW Urine Turbidity HAZY Urine pH 6.5 Urine Specific [place] 1.012 Urine Protein TRACE Urine Glucose (UA) NEG Urine Ketones 80 Urine Occult Blood SMALL Urine Nitrite NEG Urine Bilirubin NEG Urine Urobilinogen LESS THAN 2.0 Urine Leukocyte Esterase NEG Urine RBC LESS THAN 1 Urine WBC 2 Urine Squamous Epithelial 2 Cells Urine Transitional Epithelial <1 Cells Urine Bacteria RARE Urine Mucus FEW Microscopic Urinalysis Comment CULT NOT INDICATED Urine Opiates Screen NEG Urine Barbiturates Screen NEG Urine Amphetamines Screen NEG Urine Benzodiazepines Screen POS Urine Cocaine Screen NEG Urine Cannabinoids Screen NEG Result Diagram: 04/24/17 0959 04/24/1759 Imaging Abdomen/Pelvis CT 04/22/17 1744 Signed Impressions: Service Date/Time: Saturday, April 22, 2017 19:50 - CONCLUSION: 1. Abnormal bowel wall thickening seen circumferentially involving the rectum and adjacent inflammatory stranding and hyperemia. This is consistent with proctitis. No obvious abscess or free air. Emeterio Roy MD Assessment and Plan Assessment and Plan 1. Intractable nausea and vomit/ Acute Gastritis started on PPIs, Antiemetics, follow recommendations by GI specialist 2. Dehydration giving IV fluids and Electrolyte derangement giving replacement 3. Ulcerative Colitis by history On Remicade. Discussed with Emergency Medicine Specialist Doctor Ryann Simpson. DVT prophylaxis with SCDs Code Status Full Code. Discussed Condition With Patient and Mother and ER specialist. Florentin Pierson MD Apr 24, 2017 12:23
[2017-04-24 12:38] VITALS: BP 134/87; PULSE 84; RESP 18; O2SAT 99
[2017-04-24] MEDS: SODIUM CHLOR 0.9% 1000 ML INJ 1,000 ML IV ONE ×2 (13:45→14:28)
--- NOTE | 2017-04-24 15:10 | PD.CONS ---
HPI History of Present Illness This is a 26 year old female with ulcerative Colitis who presented to the ER for evaluaton of nausea, vomiting, diarrhea, and abdominal pain. She was diagnosed with ulcerative colitis [address] De La Paz. She has not seen him for over a year because her insurance has changed and he does not accept Medicaid. She reports her last colonoscopy was at that time. She has been on steroids and Canasa in the past, but states that she did not tolerate the suppositories because there were uncomfortable. For the past year or so she has been getting Remicade every 8 weeks and her last dose was April 07. She reports that she does have intermittent symptoms with diarrhea and abdominal pain, but states that her symptoms really became severe this past Friday. She had sudden onset of severe lower abdominal pain, described as a tightening/ squeezing sensation with associated nausea/vomiting and diarrhea. She is having 4-5 loose stools per day. She does have blood in her stool from time to time, but has not recently. She has lost 10 lbs over the past 2 months. She denies any suspicious foods or sick contacts. CT scan abdomen and pelvis with IV contrast (04/22/17)-----> abnormal bowel wall thickening seen circumferentially involving the rectum and adjacent inflammatory stranding and hyperemia. This is consistent with proctitis. No obvious abscess or free air. (Desiree Delcid) PFSH Past Medical History Anxiety Ulcerative Colitis Past Surgical History Left Oophorectomy C Section Colonoscopy (Desiree Delcid) Coded Allergies: No Known Allergies (Verified , 04/24/17) Medications Allergies Coded Allergies Type Severity Reaction Last Updated Verified No Known Allergies 04/24/17 Yes Active Scripts Medications Dose Route/Sig Days Date Category Remicade Inj (Infliximab) 100 Mg Inj 300 Mg IV EVERY 8 WEEKS 04/07/17 Reported Family History Noncontributory Social History Denies any use of tobacco, etoh, or illicit drug use. (Desiree Delcid ) Review of Systems Constitutional: COMPLAINS OF: Fatigue, Weight loss, Change in appetite, DENIES : Fever, Chills Cardiovascular: DENIES: Chest pain Gastrointestinal: COMPLAINS OF: Abdominal pain, Diarrhea, Nausea, Vomiting, DENIES: Black stools, Bloody stools, Constipation, Swelling of Abdomen, Hematemesis Musculoskeletal: COMPLAINS OF: Joint pain, Back pain Integumentary: DENIES: Rash Hematologic/lymphatic: DENIES: Bruising Neurologic: DENIES: Headache Psychiatric: DENIES: Confusion (Desiree Delcid) GI Exam Vitals I&O Vital Signs Date Time Temp Pulse Resp B/P Pulse Ox O2 Delivery O2 Flow Rate FiO2 04/24/17 12:38 84 18 134/87 99 Room Air 04/24/17 11:40 70 18 143/87 99 Room Air 04/24/17 10:03 98.3 88 18 145/86 100 Room Air 04/24/17 09:13 98.7 93 24 130/90 100 Room Air Laboratory Test 04/24/17 04/24/17 09:59 11:20 White Blood Count 6.8 TH/MM3 Red Blood Count 4.28 MIL/MM3 Hemoglobin 11.5 GM/DL Hematocrit 34.6 % Mean Corpuscular Volume 80.9 FL Mean Corpuscular Hemoglobin 26.9 PG Mean Corpuscular Hemoglobin 33.2 % Concent Red Cell Distribution Width 16.5 % Platelet Count 413 TH/MM3 Mean Platelet Volume 8.0 FL Neutrophils (%) (Auto) 58.4 % Lymphocytes (%) (Auto) 33.5 % Monocytes (%) (Auto) 7.6 % Eosinophils (%) (Auto) 0.3 % Basophils (%) (Auto) 0.2 % Neutrophils # (Auto) 4.0 TH/MM3 Lymphocytes # (Auto) 2.3 TH/MM3 Monocytes # (Auto) 0.5 TH/MM3 Eosinophils # (Auto) 0.0 TH/MM3 Basophils # (Auto) 0.0 TH/MM3 CBC Comment DIFF FINAL Differential Comment Sodium Level 133 MEQ/L Potassium Level 3.4 MEQ/L Chloride Level 97 MEQ/L Carbon Dioxide Level 23.7 MEQ/L Anion Gap 12 MEQ/L Blood Urea Nitrogen 9 MG/DL Creatinine 0.62 MG/DL Estimat Glomerular Filtration 140 ML/MIN Rate Random Glucose 80 MG/DL Calcium Level 8.7 MG/DL Magnesium Level 2.2 MG/DL Total Bilirubin 0.8 MG/DL Aspartate Amino Transf 12 U/L (AST/SGOT) Alanine Aminotransferase 22 U/L (ALT/SGPT) Alkaline Phosphatase 76 U/L Total Protein 9.3 GM/DL Albumin 3.9 GM/DL Lipase 270 U/L Urine Color LIGHT-YELLOW Urine Turbidity HAZY Urine pH 6.5 Urine Specific [place] 1.012 Urine Protein TRACE mg/dL Urine Glucose (UA) NEG mg/dL Urine Ketones 80 mg/dL Urine Occult Blood SMALL Urine Nitrite NEG Urine Bilirubin NEG Urine Urobilinogen LESS THAN 2.0 MG/DL Urine Leukocyte Esterase NEG Urine RBC LESS THAN 1 /hpf Urine WBC 2 /hpf Urine Squamous Epithelial 2 /hpf Cells Urine Transitional Epithelial <1 /hpf Cells Urine Bacteria RARE /hpf Urine Mucus FEW /lpf Microscopic Urinalysis Comment CULT NOT INDICATED Urine Opiates Screen NEG Urine Barbiturates Screen NEG Urine Amphetamines Screen NEG Urine Benzodiazepines Screen POS Urine Cocaine Screen NEG Urine Cannabinoids Screen NEG Physical Examination HEENT: Normocephalic; atraumatic; no jaundice. CHEST: CTA CARDIAC: RRR ABDOMEN: Soft, nondistended, lower/mid abdominal tenderness; no hepatosplenomegaly; bowel sounds are present in all four quadrants. EXTREMITIES: No clubbing, cyanosis, or edema. SKIN: Normal; no rash; no jaundice. ADMISSION DISCHARGE RN: No focal deficits; alert and oriented times three. (Desiree Delcid) Assessment and Plan Plan ASSESSMENT: - Ulcerative colitis/proctitis flare with n/v/d and abdominal pain. Dx [address] De La Paz (has not seen in a yr secondary to change of insurance). Last colonoscopy 2 years ago. Has been on Canasa- states uncomfortable so has not been on more recently. Currently on Remicade q8 wks- last dose April 07. Symptoms began 2-3 days ago, n/v/pain and 4-5 loose stools. She has been at this ER twice and once at [facility]. Returned because pain is severe and because of severe weakness. 10 lbs over the past 2 months. She denies any suspicious foods or sick contacts. CT scan abdomen and pelvis with IV contrast (04/22/17)-----> abnormal bowel wall thickening seen circumferentially involving the rectum and adjacent inflammatory stranding and hyperemia. This is consistent with proctitis. No obvious abscess or free air. Clear liquids. Add Solumedrol. Add Canasa. Stool studies. - Anemia, 11.5/34.6. - Hypokalemia, Hyponatremia, mild. Per attending. - Anxiety, per attending. PLAN: - Clear liquids - Cont. IVF - Solumedrol 40mg IV daily - Canasa suppository 1000mg rectally qhs - Protonix 40mg IV daily - CDiff, C/S, Giardia, O&P - CBC, BMP in am - Supportive care - Further recommendations to follow based on results of above - PT seen and examined by Dr. Chicas and myself and this note is written on her behalf (Desiree Delcid) Physician Comments seen, examined agree with above add Falgyl iv flexisigmoidoscopy in am (Charity Chicas MD) Desiree Delcid Apr 24, 2017 15:10 Charity Chicas MD Apr 24, 2017 20:27
--- NOTE | 2017-04-24 15:14 | PD.CONS ---
HPI History of Present Illness This is a 26 year old []. PFSH Past Medical History Anxiety Ulcerative Colitis Past Surgical History Left Oophorectomy C Section Coded Allergies: No Known Allergies (Verified , 04/24/17) Family History Asked to the patient and Mother and denied. Social History Denies any toxic habits. GI Exam Vitals I&O Vital Signs Date Time Temp Pulse Resp B/P Pulse Ox O2 Delivery O2 Flow Rate FiO2 04/24/17 12:38 84 18 134/87 99 Room Air 04/24/17 11:40 70 18 143/87 99 Room Air 04/24/17 10:03 98.3 88 18 145/86 100 Room Air 04/24/17 09:13 98.7 93 24 130/90 100 Room Air Laboratory Test 04/24/17 04/24/17 09:59 11:20 White Blood Count 6.8 TH/MM3 Red Blood Count 4.28 MIL/MM3 Hemoglobin 11.5 GM/DL Hematocrit 34.6 % Mean Corpuscular Volume 80.9 FL Mean Corpuscular Hemoglobin 26.9 PG Mean Corpuscular Hemoglobin 33.2 % Concent Red Cell Distribution Width 16.5 % Platelet Count 413 TH/MM3 Mean Platelet Volume 8.0 FL Neutrophils (%) (Auto) 58.4 % Lymphocytes (%) (Auto) 33.5 % Monocytes (%) (Auto) 7.6 % Eosinophils (%) (Auto) 0.3 % Basophils (%) (Auto) 0.2 % Neutrophils # (Auto) 4.0 TH/MM3 Lymphocytes # (Auto) 2.3 TH/MM3 Monocytes # (Auto) 0.5 TH/MM3 Eosinophils # (Auto) 0.0 TH/MM3 Basophils # (Auto) 0.0 TH/MM3 CBC Comment DIFF FINAL Differential Comment Sodium Level 133 MEQ/L Potassium Level 3.4 MEQ/L Chloride Level 97 MEQ/L Carbon Dioxide Level 23.7 MEQ/L Anion Gap 12 MEQ/L Blood Urea Nitrogen 9 MG/DL Creatinine 0.62 MG/DL Estimat Glomerular Filtration 140 ML/MIN Rate Random Glucose 80 MG/DL Calcium Level 8.7 MG/DL Magnesium Level 2.2 MG/DL Total Bilirubin 0.8 MG/DL Aspartate Amino Transf 12 U/L (AST/SGOT) Alanine Aminotransferase 22 U/L (ALT/SGPT) Alkaline Phosphatase 76 U/L Total Protein 9.3 GM/DL Albumin 3.9 GM/DL Lipase 270 U/L Urine Color LIGHT-YELLOW Urine Turbidity HAZY Urine pH 6.5 Urine Specific [place] 1.012 Urine Protein TRACE mg/dL Urine Glucose (UA) NEG mg/dL Urine Ketones 80 mg/dL Urine Occult Blood SMALL Urine Nitrite NEG Urine Bilirubin NEG Urine Urobilinogen LESS THAN 2.0 MG/DL Urine Leukocyte Esterase NEG Urine RBC LESS THAN 1 /hpf Urine WBC 2 /hpf Urine Squamous Epithelial 2 /hpf Cells Urine Transitional Epithelial <1 /hpf Cells Urine Bacteria RARE /hpf Urine Mucus FEW /lpf Microscopic Urinalysis Comment CULT NOT INDICATED Urine Opiates Screen NEG Urine Barbiturates Screen NEG Urine Amphetamines Screen NEG Urine Benzodiazepines Screen POS Urine Cocaine Screen NEG Urine Cannabinoids Screen NEG Physical Examination HEENT: Pupils round and reactive to light; normocephalic; atraumatic; no jaundice. Throat is clear. NECK: Neck is supple, no JVD, no lymphadenopathy. CHEST: Chest is clear to auscultation and percussion. CARDIAC: Regular rate and rhythm with no murmur gallop or rubs. ABDOMEN: Soft, nondistended, nontender; no hepatosplenomegaly; bowel sounds are present in all four quadrants. EXTREMITIES: No clubbing, cyanosis, or edema. SKIN: Normal; no rash; no jaundice. NECK CUTTER: No focal deficits; alert and oriented times three. Desiree Delcid Apr 24, 2017 15:14
[2017-04-24] MEDS: MORPHINE SULFATE 4 MG/ML INJ IV PUSH PRN ×2 (15:44→20:01)
[2017-04-24 16:00] VITALS: BP 138/82; PULSE 76; RESP 20; TEMP 99.3; O2SAT 100
[2017-04-24] MEDS: SUCRALFATE 1 GM TAB PO SCH ×2 (16:00→19:59)
[2017-04-24] MEDS: POTASSIUM CHLOR 10 MEQ PREMIX 100 ML IV SCH ×3 (16:21→21:04)
[2017-04-24] MEDS: PANTOPRAZOLE SODIUM 40 MG VIAL IV PUSH SCH (17:51)
[2017-04-24] MEDS: methylPREDNISolone SOD SUCC 40 MG/1 ML VIAL IM SCH (17:52)
[2017-04-24] MEDS: SODIUM CHLORIDE 0.9% FLUSH 10 ML FLUSH IV FLUSH SCH (19:58)
[2017-04-24] MEDS: DOCUSATE SODIUM 50 MG/SENNA 8.6 MG TAB PO SCH (19:59)
[2017-04-24] MEDS: MESALAMINE 1000 MG SUPP RECTAL SCH (19:59)
[2017-04-24 20:00] VITALS: BP 163/82; PULSE 64; RESP 18; TEMP 98.6; O2SAT 100
[2017-04-24] MEDS: ONDANSETRON HCL 4 MG/2 ML VIAL IVP PRN (20:59)
[2017-04-24] MEDS: metroNIDAZOLE 500 MG INJ 100 ML IV SCH (21:00)
[2017-04-25] VITALS (7 sets, daily range): BP systolic 117–151; BP diastolic 69–88; PULSE 50–94; RESP 16–18; TEMP 98.1–98.4; O2SAT 98–100
[2017-04-25] MEDS: SODIUM CHLOR 0.9% 1000 ML INJ 1,000 ML IV SCH ×3 (00:25→18:11)
[2017-04-25] MEDS: MORPHINE SULFATE 4 MG/ML INJ IV PUSH PRN ×3 (00:26→11:27)
[2017-04-25] MEDS: METOCLOPRAMIDE HCL 10 MG/2 ML VIAL IV PUSH PRN ×3 (00:48→23:44)
[2017-04-25] MEDS: ONDANSETRON HCL 4 MG/2 ML VIAL IVP PRN ×2 (03:16→18:04)
[2017-04-25] MEDS: metroNIDAZOLE 500 MG INJ 100 ML IV SCH ×3 (05:00→19:54)
[2017-04-25] MEDS: SUCRALFATE 1 GM TAB PO SCH ×4 (06:08→19:51)
[2017-04-25 07:42] LABS: AUTOMATED NEUTROPHIL # 4.3 TH/MM3 (1.8-7.7); BASOPHIL % 0.2 % (0.0-2.0); EOSINOPHIL % 0.1 % (0.0-4.0); HEMATOCRIT 33.1 % (35.0-46.0); HEMO FLAGS DIFF FINAL; LYMPH % 37.6 % (9.0-44.0); MEAN CELL VOLUME 81.4 FL (80.0-100.0); MEAN CORPUSCULAR HEMOGLOBIN 26.6 PG (27.0-34.0); MEAN CORPUSCULAR HGB CONC 32.7 % (32.0-36.0); MONO % 8.6 % (0.0-8.0); NEUT % 53.5 % (16.0-70.0); PLATELET COUNT 411 TH/MM3 (150-450); RED BLOOD COUNT 4.07 MIL/MM3 (4.00-5.30); RED CELL DISTRIBUTION WIDTH 16.3 % (11.6-17.2)
[2017-04-25] MEDS: methylPREDNISolone SOD SUCC 40 MG/1 ML VIAL IM SCH (08:19)
[2017-04-25] MEDS: DOCUSATE SODIUM 50 MG/SENNA 8.6 MG TAB PO SCH ×2 (08:19→19:51)
[2017-04-25 08:21] LABS: ALT (GPT) 18 U/L (10-53); ANION GAP 12 MEQ/L (5-15); AST (GOT) 10 U/L (15-37); BICARBONATE 23.1 MEQ/L (21.0-32.0); BLOOD UREA NITROGEN 8 MG/DL (7-18); CHLORIDE 100 MEQ/L (98-107); GLOMERULAR FILTRATION RATE 164 ML/MIN (>89); POTASSIUM 3.4 MEQ/L (3.5-5.1); SODIUM (NA) 135 MEQ/L (136-145)
[2017-04-25 08:23] LABS: ALKALINE PHOSPHATASE 73 U/L (45-117); TOTAL BILIRUBIN ADULT 0.7 MG/DL (0.2-1.0)
[2017-04-25] MEDS: SODIUM CHLORIDE 0.9% FLUSH 10 ML FLUSH IV FLUSH SCH ×2 (08:29→19:55)
--- NOTE | 2017-04-25 09:11 | HHI.PR ---
Subjective Remarks This is a pleasant 26 y/o Female with Ulcerative Colitis, presents to Emergency Room with Left lower abdominal pain She came to ER on 04/22/17 with Nausea and vomit and Diarrhea, she was given symptomatic medicine and was discharged Home and today came back to the Hospital with the same symptomatology. associated abdominal pain for the last 3 to 4 days She was seen at [facility] Emergency Room yesterday and was discharged home, she continue vomiting. The patient has been anxious and depressed, She has a [id number] baby. Upon asking mom said she has not been suicidal. She does have history of depression and anxiety and was supposed to be on Xanax and a lot of that was stopped during the and patient never resumed it since she does not have a primary care doctor. Vital signs are stable. The patient was seen in Emergency room in the presence of her mother Mrs. Tali Sorto, confirm what was expressed by her Daughter, she also states she had as GI specialist Doctor Gab De La Paz but now has not GI specialist due to that lost coverage asking for pain medicine. 04/25: Status post evaluation by GI specialist with diagnosis of Ulcerative colitis/Proctitis Flare with secondary Nausea, vomit and diarrhea abdominal pain, last dose of Remicade was April 07 2017, CT scan abdomen and pelvis with IV contrast (04/22/17)-----> abnormal bowel wall thickening seen circumferentially involving the rectum and adjacent inflammatory stranding and hyperemia. This is consistent with proctitis. No obvious abscess or free air. Clear liquids. Add Solu-Medrol. Add Mesalamine suppositories, status post Sigmoidoscopy found Colitis involving Sigmoid and rectum biopsy, stricture in rectum, Internal Hemorrhoids. Objective Vital Signs Date Time Temp Pulse Resp B/P Pulse Ox O2 Delivery O2 Flow Rate FiO2 04/25/17 08:00 98.1 73 16 124/72 98 04/25/17 04:00 98.1 50 18 117/69 100 04/25/17 00:00 98.4 59 18 151/77 100 04/24/17 20:00 98.6 64 18 163/82 100 04/24/17 16:00 99.3 76 20 138/82 100 04/24/17 12:38 84 18 134/87 99 Room Air 04/24/17 11:40 70 18 143/87 99 Room Air 04/24/17 10:03 98.3 88 18 145/86 100 Room Air 04/24/17 09:13 98.7 93 24 130/90 100 Room Air Result Diagram: 04/25/17 0604 04/25/17 0604 Imaging No Imaging studies Procedures None Other Results Laboratory Tests Test 04/24/17 04/24/17 04/25/17 09:59 11:20 06:04 Magnesium Level 2.2 MG/DL Lipase 270 U/L Urine Color LIGHT-YELLOW Urine Turbidity HAZY Urine pH 6.5 Urine Specific [place] 1.012 Urine Protein TRACE mg/dL Urine Glucose (UA) NEG mg/dL Urine Ketones 80 mg/dL Urine Occult Blood SMALL Urine Nitrite NEG Urine Bilirubin NEG Urine Urobilinogen LESS THAN 2.0 MG/DL Urine Leukocyte Esterase NEG Urine RBC LESS THAN 1 /hpf Urine WBC 2 /hpf Urine Squamous Epithelial 2 /hpf Cells Urine Transitional Epithelial <1 /hpf Cells Urine Bacteria RARE /hpf Urine Mucus FEW /lpf Microscopic Urinalysis Comment CULT NOT INDICATED Urine Opiates Screen NEG Urine Barbiturates Screen NEG Urine Amphetamines Screen NEG Urine Benzodiazepines Screen POS Urine Cocaine Screen NEG Urine Cannabinoids Screen NEG White Blood Count 8.0 TH/MM3 Red Blood Count 4.07 MIL/MM3 Hemoglobin 10.8 GM/DL Hematocrit 33.1 % Mean Corpuscular Volume 81.4 FL Mean Corpuscular Hemoglobin 26.6 PG Mean Corpuscular Hemoglobin 32.7 % Concent Red Cell Distribution Width 16.3 % Platelet Count 411 TH/MM3 Mean Platelet Volume 8.2 FL Neutrophils (%) (Auto) 53.5 % Lymphocytes (%) (Auto) 37.6 % Monocytes (%) (Auto) 8.6 % Eosinophils (%) (Auto) 0.1 % Basophils (%) (Auto) 0.2 % Neutrophils # (Auto) 4.3 TH/MM3 Lymphocytes # (Auto) 3.0 TH/MM3 Monocytes # (Auto) 0.7 TH/MM3 Eosinophils # (Auto) 0.0 TH/MM3 Basophils # (Auto) 0.0 TH/MM3 CBC Comment DIFF FINAL Differential Comment Sodium Level 135 MEQ/L Potassium Level 3.4 MEQ/L Chloride Level 100 MEQ/L Carbon Dioxide Level 23.1 MEQ/L Anion Gap 12 MEQ/L Blood Urea Nitrogen 8 MG/DL Creatinine 0.54 MG/DL Estimat Glomerular Filtration 164 ML/MIN Rate Random Glucose 72 MG/DL Calcium Level 8.9 MG/DL Total Bilirubin 0.7 MG/DL Aspartate Amino Transf 10 U/L (AST/SGOT) Alanine Aminotransferase 18 U/L (ALT/SGPT) Alkaline Phosphatase 73 U/L Total Protein 8.7 GM/DL Albumin 3.7 GM/DL Objective Remarks GENERAL: This is a well-nourished, well-developed patient, in no apparent distress. SKIN: No rashes, ecchymoses or lesions. Cool and dry. HEAD: Atraumatic. Normocephalic. No temporal or scalp tenderness. EYES: Pupils equal round and reactive. Dry mucous membranes. ENT: Nose without bleeding, purulent drainage or septal hematoma. Throat without erythema, tonsillar hypertrophy or exudate. Uvula midline. Airway patent. NECK: Trachea midline. No JVD or lymphadenopathy. Supple, nontender, no meningeal signs. CARDIOVASCULAR: Regular rate and rhythm without murmurs, gallops, or rubs. RESPIRATORY: Clear to auscultation. Breath sounds equal bilaterally. No wheezes , rales, or rhonchi. GASTROINTESTINAL: Abdomen soft, moderate diffuse tenderness. MUSCULOSKELETAL: Extremities without clubbing, cyanosis, or edema. NEUROLOGICAL: Awake and alert No focal deficits. Medications and IVs Current Medications Medications (Trade) Dose Ordered Sig/Uziel Route Start Time Stop Time Status Last Admin (NS 1000 ml Inj) 1,000 ml @ 100 mls/hr Q10H IV 04/24/17 12:09 04/25/17 00:25 (NS Flush) 2 ml UNSCH PRN IV FLUSH 04/24/17 12:15 (NS Flush) 2 ml BID IV FLUSH 04/24/17 21:00 04/25/17 08:29 (Tylenol) 650 mg Q4H PRN PO 04/24/17 12:15 (Zofran Inj) 4 mg Q6H PRN IVP 04/24/17 12:15 04/25/17 03:16 (Narcan Inj) 0.4 mg UNSCH PRN IV 04/24/17 12:15 (Pinky-Colace) 1 tab BID PO 04/24/17 21:00 04/25/17 08:19 (Milk Of Magnesia Liq) 30 ml Q12H PRN PO 04/24/17 12:15 (Senokot) 17.2 mg Q12H PRN PO 04/24/17 12:15 (Dulcolax Supp) 10 mg DAILY PRN RECTAL 04/24/17 12:15 (Lactulose Liq) 30 ml DAILY PRN PO 04/24/17 12:15 (Carafate) 1 gm ACHS PO 04/24/17 16:00 04/25/17 06:08 (KlonoPIN) 0.5 mg Q8HR PRN PO 04/24/17 12:30 (Morphine Inj) 2 mg Q4HR PRN IV PUSH 04/24/17 15:15 04/25/17 06:09 (SoluMEDROL INJ) 40 mg DAILY IM 04/24/17 18:00 04/25/17 08:19 (Canasa Supp) 1,000 mg HS RECTAL 04/24/17 21:00 04/24/17 19:59 (Protonix Inj) 40 mg Q24H IV PUSH 04/24/17 18:00 04/24/17 17:51 Metoclopramide HCl 5 mg 5 mg Q8H PRN IV PUSH 04/24/17 17:30 04/25/17 00:48 (Flagyl 500 Mg Inj) 100 ml @ 100 mls/hr Q8H IV 04/24/17 21:00 04/24/17 21:00 A/P Assessment and Plan 1. Ulcerative colitis/Proctitis Flare with secondary Nausea, vomit and diarrhea abdominal pain, last dose of Remicade was April 07 2017, CT scan abdomen and pelvis with IV contrast ()-----> abnormal bowel wall thickening seen circumferentially involving the rectum and adjacent inflammatory stranding and hyperemia. This is consistent with proctitis. No obvious abscess or free air. Clear liquids. Add Solu-Medrol. Add Mesalamine suppositories, status post Sigmoidoscopy found Colitis involving Sigmoid and rectum biopsy, stricture in rectum, Internal Hemorrhoids. pain medicine continue. Improving condition. 2. Dehydration giving IV fluids and Electrolyte derangement giving replacement, her Potassium level 3.4 giving Potassium replacement 60 meq now. DVT prophylaxis with SCDs Code Status Full Code. Discussed Condition With Patient, her Mother and nurse, all questions answered to the best of my abilities. Discharge Planning Once cleared by GI specialist Florentin Pierson MD Apr 25, 2017 09:11
[2017-04-25] MEDS: clonazePAM 0.5 MG TAB PO PRN ×2 (09:13→18:15)
[2017-04-25] MEDS ORDERED: PROPOFOL 200 MG/20 ML AMP IV ONE (13:20)
[2017-04-25] MEDS ORDERED: DO NOT ADM ANY ANTICOAGULANT DRUGS PRN (13:30)
--- NOTE | 2017-04-25 13:47 | GIPROC ---
[facility] [address] [facility]. [facility], [address] FLEXIBLE SIGMOIDOSCOPY PROCEDURE REPORT EXAM DATE: 04/25/2017 PATIENT NAME: Franca Byrd MR #: [id number] BIRTHDATE: 1990 ORDER #: [id number] ATTENDING: Charity Chicas MD STEAM FITTER HELPER: Bert Briones STATUS: inpatient INDICATIONS: The patient is a 26 yr old female here for a flexible sigmoidoscopy due to ulcerative colitis PROCEDURE PERFORMED: Flexible Sigmoidoscopy with biopsy MEDICATIONS: None and Per Anesthesia. ESTIMATED BLOOD LOSS: None CONSENT: The patient understands the risks and benefits of the procedure and understands that these risks include, but are not limited to: sedation, allergic reaction, infection, perforation and/or bleeding. Alternative means of evaluation and treatment include, among others: physical exam, x-rays, and/or surgical intervention. The patient elects to proceed with this endoscopic procedure. medical equipment was checked for proper function. Hand hygiene and appropriate measures for infection prevention was taken. After the risks, benefits and alternatives of the procedure were thoroughly explained, Informed consent was verified, confirmed and timeout was successfully executed by the treatment team. A digital rectal exam revealed external hemorrhoids The [id number] endoscope was introduced through the anus and advanced to the descending colon. The prep was 10 % obscured. The instrument was then slowly withdrawn as the colon was fully examined. COLON FINDINGS: Colitis involving sigmid, rectum-biopsies stricture in rectum descending colon looks normal. Retroflexed views revealed internal hemorrhoid The scope was then completely withdrawn from the patient and the procedure terminated. ADVERSE EVENTS: There were no complications. IMPRESSIONS: 1. Colitis involving sigmid, rectum-biopsies stricture in rectum descending colon looks normal 2. Retroflexed views revealed internal hemorrhoid 3. Revealed external hemorrhoids RECOMMENDATIONS: Await biopsy results RECALL: Colonoscopy, pending biopsy results Charity Chicas MD eSigned: Charity Chicas MD 04/25/2017 1:47 PM cc: PATIENT NAME: Franca Byrd MR#: [id number]
[2017-04-25] MEDS: HYDROmorphone HCL 2 MG TAB PO PRN ×3 (16:23→23:44)
[2017-04-25] MEDS ORDERED: POTASSIUM CHLORIDE 20 MEQ CONTROLLED RELEASE TAB PO ONE ×2 (17:00→21:00)
[2017-04-25] MEDS: PANTOPRAZOLE SODIUM 40 MG VIAL IV PUSH SCH (18:07)
[2017-04-25] MEDS: MESALAMINE 1000 MG SUPP RECTAL SCH (19:54)
[2017-04-26] VITALS (7 sets, daily range): BP systolic 112–152; BP diastolic 71–91; PULSE 64–98; RESP 16–18; TEMP 98.5–99; O2SAT 97–100
[2017-04-26] MEDS: metroNIDAZOLE 500 MG INJ 100 ML IV SCH ×3 (05:27→21:59)
[2017-04-26] MEDS: SUCRALFATE 1 GM TAB PO SCH ×4 (05:28→21:59)
[2017-04-26] MEDS: HYDROmorphone HCL 2 MG TAB PO PRN ×4 (05:28→22:04)
[2017-04-26] MEDS: ONDANSETRON HCL 4 MG/2 ML VIAL IVP PRN ×2 (05:28→16:21)
[2017-04-26] MEDS: SODIUM CHLOR 0.9% 1000 ML INJ 1,000 ML IV SCH ×2 (05:29→18:21)
[2017-04-26] MEDS: DOCUSATE SODIUM 50 MG/SENNA 8.6 MG TAB PO SCH ×2 (08:29→21:59)
[2017-04-26] MEDS: methylPREDNISolone SOD SUCC 40 MG/1 ML VIAL IM SCH (08:29)
[2017-04-26] MEDS: METOCLOPRAMIDE HCL 10 MG/2 ML VIAL IV PUSH PRN (08:30)
[2017-04-26] MEDS: SODIUM CHLORIDE 0.9% FLUSH 10 ML FLUSH IV FLUSH SCH ×2 (09:00→21:00)
--- NOTE | 2017-04-26 09:04 | HHI.PR ---
Subjective Remarks This is a pleasant 26 y/o Female with Ulcerative Colitis, presents to Emergency Room with Left lower abdominal pain She came to ER on 04/22/17 with Nausea and vomit and Diarrhea, she was given symptomatic medicine and was discharged Home and today came back to the Hospital with the same symptomatology. associated abdominal pain for the last 3 to 4 days She was seen at [facility] Emergency Room yesterday and was discharged home, she continue vomiting. The patient has been anxious and depressed, She has a [id number]-yuq baby. Upon asking mom said she has not been suicidal. She does have history of depression and anxiety and was supposed to be on Xanax and a lot of that was stopped during the and patient never resumed it since she does not have a primary care doctor. Vital signs are stable. The patient was seen in Emergency room in the presence of her mother Mrs. Tali Sorto, confirm what was expressed by her Daughter, she also states she had as GI specialist Doctor Gab De La Paz but now has not GI specialist due to that lost coverage asking for pain medicine. 04/25: Status post evaluation by GI specialist with diagnosis of Ulcerative colitis/Proctitis Flare with secondary Nausea, vomit and diarrhea abdominal pain, last dose of Remicade was April 07 2017, CT scan abdomen and pelvis with IV contrast (04/22/17)-----> abnormal bowel wall thickening seen circumferentially involving the rectum and adjacent inflammatory stranding and hyperemia. This is consistent with proctitis. No obvious abscess or free air. Clear liquids. Add Solu-Medrol. Add Mesalamine suppositories, status post Sigmoidoscopy found Colitis involving Sigmoid and rectum biopsy, stricture in rectum, Internal Hemorrhoids. 04/26: Seen in her bedroom in the presence of nurse Julian Gallito, continue with Nausea, but no vomit or diarrhea. Objective Vital Signs Date Time Temp Pulse Resp B/P Pulse Ox O2 Delivery O2 Flow Rate FiO2 04/26/17 08:43 99.0 81 16 130/78 97 04/26/17 04:01 98.8 64 16 142/81 99 04/26/17 00:05 98.5 81 16 133/91 100 04/25/17 20:02 98.3 94 16 139/87 100 04/25/17 16:00 98.4 83 16 127/76 99 04/25/17 13:57 90 18 145/92 99 04/25/17 13:44 96 17 135/96 98 04/25/17 13:30 98.8 93 17 131/96 98 04/25/17 12:00 98.4 89 16 139/88 99 04/25/17 11:54 98.1 73 16 124/72 98 I/O 04/25/17 04/25/17 04/25/17 04/26/17 04/26/17 04/26/17 07:00 15:00 23:00 07:00 15:00 23:00 Intake Total 440 ml 360 ml 120 ml Balance 440 ml 360 ml 120 ml Intake Oral 240 ml 360 ml 120 ml IV Total 200 ml # Voids 2 4 3 Result Diagram: 04/25/17 0604 04/26/17 0740 Imaging Abdomen/Pelvis CT 04/22/17 1744 Signed Impressions: Service Date/Time: Saturday, April 22, 2017 19:50 - CONCLUSION: 1. Abnormal bowel wall thickening seen circumferentially involving the rectum and adjacent inflammatory stranding and hyperemia. This is consistent with proctitis. No obvious abscess or free air. Emeterio Roy MD Procedures None Other Results Laboratory Tests Test 04/24/17 04/24/17 04/25/17 04/26/17 09:59 11:20 06:04 07:40 Magnesium Level 2.2 MG/DL Lipase 270 U/L Urine Color LIGHT-YELLOW Urine Turbidity HAZY Urine pH 6.5 Urine Specific [place] 1.012 Urine Protein TRACE mg/dL Urine Glucose (UA) NEG mg/dL Urine Ketones 80 mg/dL Urine Occult Blood SMALL Urine Nitrite NEG Urine Bilirubin NEG Urine Urobilinogen LESS THAN 2.0 MG/DL Urine Leukocyte Esterase NEG Urine RBC LESS THAN 1 /hpf Urine WBC 2 /hpf Urine Squamous Epithelial 2 /hpf Cells Urine Transitional Epithelial <1 /hpf Cells Urine Bacteria RARE /hpf Urine Mucus FEW /lpf Microscopic Urinalysis Comment CULT NOT INDICATED Urine Opiates Screen NEG Urine Barbiturates Screen NEG Urine Amphetamines Screen NEG Urine Benzodiazepines Screen POS Urine Cocaine Screen NEG Urine Cannabinoids Screen NEG White Blood Count 8.0 TH/MM3 Red Blood Count 4.07 MIL/MM3 Hemoglobin 10.8 GM/DL Hematocrit 33.1 % Mean Corpuscular Volume 81.4 FL Mean Corpuscular Hemoglobin 26.6 PG Mean Corpuscular Hemoglobin 32.7 % Concent Red Cell Distribution Width 16.3 % Platelet Count 411 TH/MM3 Mean Platelet Volume 8.2 FL Neutrophils (%) (Auto) 53.5 % Lymphocytes (%) (Auto) 37.6 % Monocytes (%) (Auto) 8.6 % Eosinophils (%) (Auto) 0.1 % Basophils (%) (Auto) 0.2 % Neutrophils # (Auto) 4.3 TH/MM3 Lymphocytes # (Auto) 3.0 TH/MM3 Monocytes # (Auto) 0.7 TH/MM3 Eosinophils # (Auto) 0.0 TH/MM3 Basophils # (Auto) 0.0 TH/MM3 CBC Comment DIFF FINAL Differential Comment Erythrocyte Sedimentation Rate 59 mm/hr Sodium Level 135 MEQ/L Chloride Level 100 MEQ/L Carbon Dioxide Level 23.1 MEQ/L Anion Gap 12 MEQ/L Blood Urea Nitrogen 8 MG/DL Creatinine 0.54 MG/DL Estimat Glomerular Filtration 164 ML/MIN Rate Random Glucose 72 MG/DL Calcium Level 8.9 MG/DL Total Bilirubin 0.7 MG/DL Aspartate Amino Transf 10 U/L (AST/SGOT) Alanine Aminotransferase 18 U/L (ALT/SGPT) Alkaline Phosphatase 73 U/L C-Reactive Protein 0.38 MG/DL Total Protein 8.7 GM/DL Albumin 3.7 GM/DL Potassium Level 3.8 MEQ/L Objective Remarks GENERAL: This is a well-nourished, well-developed patient, in no apparent distress. SKIN: No rashes, ecchymoses or lesions. Cool and dry. HEAD: Atraumatic. Normocephalic. No temporal or scalp tenderness. EYES: Pupils equal round and reactive. Dry mucous membranes. ENT: Nose without bleeding, purulent drainage or septal hematoma. Throat without erythema, tonsillar hypertrophy or exudate. Uvula midline. Airway patent. NECK: Trachea midline. No JVD or lymphadenopathy. Supple, nontender, no meningeal signs. CARDIOVASCULAR: Regular rate and rhythm without murmurs, gallops, or rubs. RESPIRATORY: Clear to auscultation. Breath sounds equal bilaterally. No wheezes , rales, or rhonchi. GASTROINTESTINAL: Abdomen soft, moderate diffuse tenderness. MUSCULOSKELETAL: Extremities without clubbing, cyanosis, or edema. NEUROLOGICAL: Awake and alert No focal deficits. Medications and IVs Current Medications Medications (Trade) Dose Ordered Sig/Uziel Route Start Time Stop Time Status Last Admin (NS 1000 ml Inj) 1,000 ml @ 100 mls/hr Q10H IV 04/24/17 12:09 04/26/17 05:29 (NS Flush) 2 ml UNSCH PRN IV FLUSH 04/24/17 12:15 (NS Flush) 2 ml BID IV FLUSH 04/24/17 21:00 04/25/17 19:55 (Tylenol) 650 mg Q4H PRN PO 04/24/17 12:15 (Zofran Inj) 4 mg Q6H PRN IVP 04/24/17 12:15 04/26/17 05:28 (Narcan Inj) 0.4 mg UNSCH PRN IV 04/24/17 12:15 (Pinky-Colace) 1 tab BID PO 04/24/17 21:00 04/26/17 08:29 (Milk Of Magnesia Liq) 30 ml Q12H PRN PO 04/24/17 12:15 (Senokot) 17.2 mg Q12H PRN PO 04/24/17 12:15 (Dulcolax Supp) 10 mg DAILY PRN RECTAL 04/24/17 12:15 (Lactulose Liq) 30 ml DAILY PRN PO 04/24/17 12:15 (Carafate) 1 gm ACHS PO 04/24/17 16:00 04/26/17 05:28 (KlonoPIN) 0.5 mg Q8HR PRN PO 04/24/17 12:30 04/25/17 18:15 (SoluMEDROL INJ) 40 mg DAILY IM 04/24/17 18:00 04/26/17 08:29 (Canasa Supp) 1,000 mg HS RECTAL 04/24/17 21:00 04/25/17 19:54 (Protonix Inj) 40 mg Q24H IV PUSH 04/24/17 18:00 04/25/17 18:07 Metoclopramide HCl 5 mg 5 mg Q8H PRN IV PUSH 04/24/17 17:30 04/26/17 08:30 (Flagyl 500 Mg Inj) 100 ml @ 100 mls/hr Q8H IV 04/24/17 21:00 04/26/17 05:27 Miscellaneous Information ALL NURSING DEPARTME... UNSCH PRN .XX 04/25/17 13:30 04/26/17 13:29 (Dilaudid) 2 mg Q3H PRN PO 04/25/17 15:45 04/26/17 05:28 A/P Assessment and Plan 1. Ulcerative colitis/Proctitis Flare with secondary Nausea, vomit and diarrhea abdominal pain, last dose of Remicade was April 07 2017, CT scan abdomen and pelvis with IV contrast ()-----> abnormal bowel wall thickening seen circumferentially involving the rectum and adjacent inflammatory stranding and hyperemia. This is consistent with proctitis. No obvious abscess or free air. Clear liquids. Add Solu-Medrol. Add Mesalamine suppositories, status post Sigmoidoscopy found Colitis involving Sigmoid and rectum biopsy, stricture in rectum, Internal Hemorrhoids. pain medicine continue. Improving condition. 2. Dehydration giving IV fluids and Electrolyte derangement replaced. DVT prophylaxis with SCDs Code Status Full Code. Discussed Condition With Patient and nurse Mr. Conti, all questions answered to the best of my abilities. Discharge Planning Once cleared by GI specialist Florentin Pierson MD Apr 26, 2017 09:03 Florentin Pierson MD Apr 26, 2017 09:03
--- NOTE | 2017-04-26 12:16 | HHI.GIFU ---
Subjective Remarks Resting in bed. Having nausea, vomited earlier today. Does feel better and would like to try lunch. Pain controlled. No BM. No rectal bleeding. (Desiree Delcid) Objective Vitals I&O Vital Signs Date Time Temp Pulse Resp B/P Pulse Ox O2 Delivery O2 Flow Rate FiO2 04/26/17 08:43 99.0 81 16 130/78 97 04/26/17 04:01 98.8 64 16 142/81 99 04/26/17 00:05 98.5 81 16 133/91 100 04/25/17 20:02 98.3 94 16 139/87 100 04/25/17 16:00 98.4 83 16 127/76 99 04/25/17 13:57 90 18 145/92 99 04/25/17 13:44 96 17 135/96 98 04/25/17 13:30 98.8 93 17 131/96 98 I/O 04/25/17 04/25/17 04/25/17 04/26/17 04/26/17 04/26/17 06:59 14:59 22:59 06:59 14:59 22:59 Intake Total 440 ml 360 ml 120 ml Balance 440 ml 360 ml 120 ml Intake Oral 240 ml 360 ml 120 ml IV Total 200 ml # Voids 2 4 3 Laboratory Laboratory Tests Test 04/26/17 07:40 Potassium Level 3.8 Physical Exam HEENT: Normocephalic; atraumatic; no jaundice. CHEST: CTA CARDIAC: RRR ABDOMEN: Soft, nondistended, mild mid abdominal tenderness; no hepatosplenomegaly; bowel sounds are present in all four quadrants. EXTREMITIES: No clubbing, cyanosis, or edema. SKIN: Normal; no rash; no jaundice. TEST ENGINEERING MANAGER: No focal deficits; alert and oriented times three. (Desiree Delcid) Assessment and Plan Plan ASSESSMENT: - Ulcerative colitis/proctitis flare with n/v/d and abdominal pain. Dx [address] De La Paz (has not seen in a yr secondary to change of insurance). Last colonoscopy 2 years ago. Has been on Canasa- states uncomfortable so has not been on more recently. Currently on Remicade q8 wks- last dose April 07. Symptoms began 2-3 days ago, n/v/pain and 4-5 loose stools. She has been at this ER twice and once at [facility]. Returned because pain is severe and because of severe weakness. 10 lbs over the past 2 months. She denies any suspicious foods or sick contacts. CT scan abdomen and pelvis with IV contrast (04/22/17)-----> abnormal bowel wall thickening seen circumferentially involving the rectum and adjacent inflammatory stranding and hyperemia. This is consistent with proctitis. No obvious abscess or free air. S/P Flexible sigmoidoscopy (04/26/17)----> 1. Colitis involving sigmid, rectum- biopsies stricture in rectum descending colon looks normal 2. Retroflexed views revealed internal hemorrhoid 3. Revealed external hemorrhoids. Solumedrol. Canasa. Stool studies pending- no stools. Pathology pending. ESR 59. - Anemia, 10.8/33.1. - Hypokalemia, Hyponatremia, mild. Per attending. - Anxiety, per attending. PLAN: - SOLEDAD - Cont. Solumedrol - Cont. Canasa - Cont. Protonix - Pt is on Remicade as outpatient, last dose April 07 - Monitor labs - Supportive care - Further recommendations to follow based on results of above - PT seen and examined by Dr. Chicas and myself and this note is written on her behalf (Desiree Delcid) Physician Comments seen, examined agree with above (Charity Chicas MD) Desiree Delcid Apr 26, 2017 12:16 Charity Chicas MD Apr 26, 2017 18:24
[2017-04-26] MEDS: PANTOPRAZOLE SODIUM 40 MG VIAL IV PUSH SCH (18:20)
[2017-04-26] MEDS: MESALAMINE 1000 MG SUPP RECTAL SCH (21:00)
[2017-04-27 00:49] VITALS: BP 142/91; PULSE 66; RESP 16; TEMP 99.3; O2SAT 100
[2017-04-27] MEDS: metroNIDAZOLE 500 MG INJ 100 ML IV SCH ×3 (05:10→20:42)
[2017-04-27] MEDS: HYDROmorphone HCL 2 MG TAB PO PRN ×3 (05:10→20:42)
[2017-04-27] MEDS: ONDANSETRON HCL 4 MG/2 ML VIAL IVP PRN (05:10)
[2017-04-27 05:41] VITALS: BP 129/73; PULSE 82; RESP 16; TEMP 98.6; O2SAT 100
[2017-04-27] MEDS: SUCRALFATE 1 GM TAB PO SCH ×4 (06:22→20:42)
[2017-04-27 08:15] VITALS: BP 144/70; PULSE 78; RESP 16; TEMP 98.5; O2SAT 98
[2017-04-27] MEDS: SODIUM CHLORIDE 0.9% FLUSH 10 ML FLUSH IV FLUSH SCH ×2 (09:00→20:42)
[2017-04-27] MEDS: DOCUSATE SODIUM 50 MG/SENNA 8.6 MG TAB PO SCH ×2 (09:17→20:42)
[2017-04-27] MEDS: methylPREDNISolone SOD SUCC 40 MG/1 ML VIAL IM SCH (09:17)
[2017-04-27] MEDS: SODIUM CHLOR 0.9% 1000 ML INJ 1,000 ML IV SCH (09:18)
[2017-04-27] MEDS: clonazePAM 0.5 MG TAB PO PRN (09:47)
--- NOTE | 2017-04-27 11:33 | HHI.PR ---
Subjective Remarks This is a pleasant 26 y/o Female with Ulcerative Colitis, presents to Emergency Room with Left lower abdominal pain She came to ER on 04/22/17 with Nausea and vomit and Diarrhea, she was given symptomatic medicine and was discharged Home and today came back to the Hospital with the same symptomatology. associated abdominal pain for the last 3 to 4 days She was seen at [facility] Emergency Room yesterday and was discharged home, she continue vomiting. The patient has been anxious and depressed, She has a 09-colzt-tpt baby. Upon asking mom said she has not been suicidal. She does have history of depression and anxiety and was supposed to be on Xanax and a lot of that was stopped during the and patient never resumed it since she does not have a primary care doctor. Vital signs are stable. The patient was seen in Emergency room in the presence of her mother Mrs. Tali Sorto, confirm what was expressed by her Daughter, she also states she had as GI specialist Doctor Gab De La Paz but now has not GI specialist due to that lost coverage asking for pain medicine. 04/25: Status post evaluation by GI specialist with diagnosis of Ulcerative colitis/Proctitis Flare with secondary Nausea, vomit and diarrhea abdominal pain, last dose of Remicade was April 07 2017, CT scan abdomen and pelvis with IV contrast (04/22/17)-----> abnormal bowel wall thickening seen circumferentially involving the rectum and adjacent inflammatory stranding and hyperemia. This is consistent with proctitis. No obvious abscess or free air. Clear liquids. Add Solu-Medrol. Add Mesalamine suppositories, status post Sigmoidoscopy found Colitis involving Sigmoid and rectum biopsy, stricture in rectum, Internal Hemorrhoids. 04/26: Seen in her bedroom in the presence of nurse Julian Gallito. 04/27: Stable no new issues, states she is feeling better, tolerating liquid diet wants to be advanced, will leave that decision to GI specialist No nausea, vomit or diarrhea. Objective Vital Signs Date Time Temp Pulse Resp B/P Pulse Ox O2 Delivery O2 Flow Rate FiO2 04/27/17 08:15 98.5 78 16 144/70 98 04/27/17 05:41 98.6 82 16 129/73 100 04/27/17 00:49 99.3 66 16 142/91 100 04/26/17 20:00 98.6 71 16 112/71 99 04/26/17 17:20 17 04/26/17 16:04 99.0 95 16 129/75 98 04/26/17 12:26 98 21 04/26/17 12:17 98.8 81 17 140/76 99 I/O 04/26/17 04/26/17 04/26/17 04/27/17 04/27/17 04/27/17 07:00 15:00 23:00 07:00 15:00 23:00 Intake Total 120 ml 480 ml 240 ml Balance 120 ml 480 ml 240 ml Intake Oral 120 ml 480 ml 240 ml # Voids 5 Result Diagram: 04/25/17 0604 04/26/17 0740 Imaging No Imaging studies. Procedures None Other Results Laboratory Tests Test 04/24/17 04/24/17 04/25/17 04/26/17 09:59 11:20 06:04 07:40 Magnesium Level 2.2 MG/DL Lipase 270 U/L Urine Color LIGHT-YELLOW Urine Turbidity HAZY Urine pH 6.5 Urine Specific [place] 1.012 Urine Protein TRACE mg/dL Urine Glucose (UA) NEG mg/dL Urine Ketones 80 mg/dL Urine Occult Blood SMALL Urine Nitrite NEG Urine Bilirubin NEG Urine Urobilinogen LESS THAN 2.0 MG/DL Urine Leukocyte Esterase NEG Urine RBC LESS THAN 1 /hpf Urine WBC 2 /hpf Urine Squamous Epithelial 2 /hpf Cells Urine Transitional Epithelial <1 /hpf Cells Urine Bacteria RARE /hpf Urine Mucus FEW /lpf Microscopic Urinalysis Comment CULT NOT INDICATED Urine Opiates Screen NEG Urine Barbiturates Screen NEG Urine Amphetamines Screen NEG Urine Benzodiazepines Screen POS Urine Cocaine Screen NEG Urine Cannabinoids Screen NEG White Blood Count 8.0 TH/MM3 Red Blood Count 4.07 MIL/MM3 Hemoglobin 10.8 GM/DL Hematocrit 33.1 % Mean Corpuscular Volume 81.4 FL Mean Corpuscular Hemoglobin 26.6 PG Mean Corpuscular Hemoglobin 32.7 % Concent Red Cell Distribution Width 16.3 % Platelet Count 411 TH/MM3 Mean Platelet Volume 8.2 FL Neutrophils (%) (Auto) 53.5 % Lymphocytes (%) (Auto) 37.6 % Monocytes (%) (Auto) 8.6 % Eosinophils (%) (Auto) 0.1 % Basophils (%) (Auto) 0.2 % Neutrophils # (Auto) 4.3 TH/MM3 Lymphocytes # (Auto) 3.0 TH/MM3 Monocytes # (Auto) 0.7 TH/MM3 Eosinophils # (Auto) 0.0 TH/MM3 Basophils # (Auto) 0.0 TH/MM3 CBC Comment DIFF FINAL Differential Comment Erythrocyte Sedimentation Rate 59 mm/hr Sodium Level 135 MEQ/L Chloride Level 100 MEQ/L Carbon Dioxide Level 23.1 MEQ/L Anion Gap 12 MEQ/L Blood Urea Nitrogen 8 MG/DL Creatinine 0.54 MG/DL Estimat Glomerular Filtration 164 ML/MIN Rate Random Glucose 72 MG/DL Calcium Level 8.9 MG/DL Total Bilirubin 0.7 MG/DL Aspartate Amino Transf 10 U/L (AST/SGOT) Alanine Aminotransferase 18 U/L (ALT/SGPT) Alkaline Phosphatase 73 U/L C-Reactive Protein 0.38 MG/DL Total Protein 8.7 GM/DL Albumin 3.7 GM/DL Potassium Level 3.8 MEQ/L Objective Remarks GENERAL: This is a well-nourished, well-developed patient, in no apparent distress. SKIN: No rashes, ecchymoses or lesions. Cool and dry. HEAD: Atraumatic. Normocephalic. No temporal or scalp tenderness. EYES: Pupils equal round and reactive. Dry mucous membranes. ENT: Nose without bleeding, purulent drainage or septal hematoma. Throat without erythema, tonsillar hypertrophy or exudate. Uvula midline. Airway patent. NECK: Trachea midline. No JVD or lymphadenopathy. Supple, nontender, no meningeal signs. CARDIOVASCULAR: Regular rate and rhythm without murmurs, gallops, or rubs. RESPIRATORY: Clear to auscultation. Breath sounds equal bilaterally. No wheezes , rales, or rhonchi. GASTROINTESTINAL: Abdomen soft, non tender, positive bowel sounds. MUSCULOSKELETAL: Extremities without clubbing, cyanosis, or edema. NEUROLOGICAL: Awake and alert No focal deficits. Medications and IVs Current Medications Medications (Trade) Dose Ordered Sig/Uziel Route Start Time Stop Time Status Last Admin (NS 1000 ml Inj) 1,000 ml @ 100 mls/hr Q10H IV 04/24/17 12:09 04/27/17 09:18 (NS Flush) 2 ml UNSCH PRN IV FLUSH 04/24/17 12:15 (NS Flush) 2 ml BID IV FLUSH 04/24/17 21:00 04/25/17 19:55 (Tylenol) 650 mg Q4H PRN PO 04/24/17 12:15 (Zofran Inj) 4 mg Q6H PRN IVP 04/24/17 12:15 04/27/17 05:10 (Narcan Inj) 0.4 mg UNSCH PRN IV 04/24/17 12:15 (Pinky-Colace) 1 tab BID PO 04/24/17 21:00 04/27/17 09:17 (Milk Of Magnesia Liq) 30 ml Q12H PRN PO 04/24/17 12:15 (Senokot) 17.2 mg Q12H PRN PO 04/24/17 12:15 (Dulcolax Supp) 10 mg DAILY PRN RECTAL 04/24/17 12:15 (Lactulose Liq) 30 ml DAILY PRN PO 04/24/17 12:15 (Carafate) 1 gm ACHS PO 04/24/17 16:00 04/27/17 06:22 (KlonoPIN) 0.5 mg Q8HR PRN PO 04/24/17 12:30 04/27/17 09:47 (SoluMEDROL INJ) 40 mg DAILY IM 04/24/17 18:00 04/27/17 09:17 (Canasa Supp) 1,000 mg HS RECTAL 04/24/17 21:00 04/25/17 19:54 (Protonix Inj) 40 mg Q24H IV PUSH 04/24/17 18:00 04/26/17 18:20 Metoclopramide HCl 5 mg 5 mg Q8H PRN IV PUSH 04/24/17 17:30 04/26/17 08:30 (Flagyl 500 Mg Inj) 100 ml @ 100 mls/hr Q8H IV 04/24/17 21:00 04/27/17 05:10 (Dilaudid) 2 mg Q3H PRN PO 04/25/17 15:45 04/27/17 05:10 A/P Assessment and Plan 1. Ulcerative colitis/Proctitis Flare with secondary Nausea, vomit and diarrhea abdominal pain, last dose of Remicade was April 07 2017, CT scan abdomen and pelvis with IV contrast ()-----> abnormal bowel wall thickening seen circumferentially involving the rectum and adjacent inflammatory stranding and hyperemia. This is consistent with proctitis. No obvious abscess or free air. Clear liquids. Add Solu-Medrol. Add Mesalamine suppositories, status post Sigmoidoscopy found Colitis involving Sigmoid and rectum biopsy, stricture in rectum, Internal Hemorrhoids. pain medicine continue. Improving condition. 2. Dehydration giving IV fluids and Electrolyte derangement replaced. DVT prophylaxis with SCDs Code Status Full Code. Discussed Condition With Patient, all questions answered to the best of my abilities. Discharge Planning Once cleared by GI specialist Florentin Pierson MD Apr 27, 2017 11:33
[2017-04-27 12:41] VITALS: BP 112/61; PULSE 88; RESP 16; TEMP 99.5; O2SAT 98
--- NOTE | 2017-04-27 15:05 | HHI.GIFU ---
Subjective Remarks Resting in bed. Reports she is doing well today. Denies nausea or vomiting. Tolerating liquid diet, would like to advance diet. (Tiara Thompson ) Objective Vitals I&O Vital Signs Date Time Temp Pulse Resp B/P Pulse Ox O2 Delivery O2 Flow Rate FiO2 04/27/17 12:41 99.5 88 16 112/61 98 04/27/17 08:15 98.5 78 16 144/70 98 04/27/17 05:41 98.6 82 16 129/73 100 04/27/17 00:49 99.3 66 16 142/91 100 04/26/17 20:00 98.6 71 16 112/71 99 04/26/17 17:20 17 04/26/17 16:04 99.0 95 16 129/75 98 I/O 04/26/17 04/26/17 04/26/17 04/27/17 04/27/17 04/27/17 06:59 14:59 22:59 06:59 14:59 22:59 Intake Total 120 ml 480 ml 240 ml Balance 120 ml 480 ml 240 ml Intake Oral 120 ml 480 ml 240 ml # Voids 5 Laboratory Laboratory Tests Test 04/24/17 04/24/17 04/25/17 04/26/17 09:59 11:20 06:04 07:40 Magnesium Level 2.2 MG/DL Lipase 270 U/L Urine Color LIGHT-YELLOW Urine Turbidity HAZY Urine pH 6.5 Urine Specific [place] 1.012 Urine Protein TRACE mg/dL Urine Glucose (UA) NEG mg/dL Urine Ketones 80 mg/dL Urine Occult Blood SMALL Urine Nitrite NEG Urine Bilirubin NEG Urine Urobilinogen LESS THAN 2.0 MG/DL Urine Leukocyte Esterase NEG Urine RBC LESS THAN 1 /hpf Urine WBC 2 /hpf Urine Squamous Epithelial 2 /hpf Cells Urine Transitional Epithelial <1 /hpf Cells Urine Bacteria RARE /hpf Urine Mucus FEW /lpf Microscopic Urinalysis Comment CULT NOT INDICATED Urine Opiates Screen NEG Urine Barbiturates Screen NEG Urine Amphetamines Screen NEG Urine Benzodiazepines Screen POS Urine Cocaine Screen NEG Urine Cannabinoids Screen NEG White Blood Count 8.0 TH/MM3 Red Blood Count 4.07 MIL/MM3 Hemoglobin 10.8 GM/DL Hematocrit 33.1 % Mean Corpuscular Volume 81.4 FL Mean Corpuscular Hemoglobin 26.6 PG Mean Corpuscular Hemoglobin 32.7 % Concent Red Cell Distribution Width 16.3 % Platelet Count 411 TH/MM3 Mean Platelet Volume 8.2 FL Neutrophils (%) (Auto) 53.5 % Lymphocytes (%) (Auto) 37.6 % Monocytes (%) (Auto) 8.6 % Eosinophils (%) (Auto) 0.1 % Basophils (%) (Auto) 0.2 % Neutrophils # (Auto) 4.3 TH/MM3 Lymphocytes # (Auto) 3.0 TH/MM3 Monocytes # (Auto) 0.7 TH/MM3 Eosinophils # (Auto) 0.0 TH/MM3 Basophils # (Auto) 0.0 TH/MM3 CBC Comment DIFF FINAL Differential Comment Erythrocyte Sedimentation Rate 59 mm/hr Sodium Level 135 MEQ/L Chloride Level 100 MEQ/L Carbon Dioxide Level 23.1 MEQ/L Anion Gap 12 MEQ/L Blood Urea Nitrogen 8 MG/DL Creatinine 0.54 MG/DL Estimat Glomerular Filtration 164 ML/MIN Rate Random Glucose 72 MG/DL Calcium Level 8.9 MG/DL Total Bilirubin 0.7 MG/DL Aspartate Amino Transf 10 U/L (AST/SGOT) Alanine Aminotransferase 18 U/L (ALT/SGPT) Alkaline Phosphatase 73 U/L C-Reactive Protein 0.38 MG/DL Total Protein 8.7 GM/DL Albumin 3.7 GM/DL Potassium Level 3.8 MEQ/L Physical Exam HEENT: PERRLA. Normocephalic; atraumatic; no jaundice. CHEST: CTA CARDIAC: RRR ABDOMEN: Soft, nondistended, mild mid abdominal tenderness; no hepatosplenomegaly; bowel sounds are present in all four quadrants. EXTREMITIES: No clubbing, cyanosis, or edema. SKIN: Normal; no rash; no jaundice. ACCOUNTS PAYABLE ACCOUNTANT: No focal deficits; alert and oriented times three. (Tiara Thompson) Assessment and Plan Plan ASSESSMENT: - Ulcerative colitis/proctitis flare with n/v/d and abdominal pain. Dx [address] De La Paz (has not seen in a yr secondary to change of insurance). Last colonoscopy 2 years ago. Has been on Canasa- states uncomfortable so has not been on more recently. Currently on Remicade q8 wks- last dose April 07. Symptoms began 2-3 days ago, n/v/pain and 4-5 loose stools. She has been at this ER twice and once at [facility]. Returned because pain is severe and because of severe weakness. 10 lbs over the past 2 months. She denies any suspicious foods or sick contacts. CT scan abdomen and pelvis with IV contrast (04/22/17)-----> abnormal bowel wall thickening seen circumferentially involving the rectum and adjacent inflammatory stranding and hyperemia. This is consistent with proctitis. No obvious abscess or free air. S/P Flexible sigmoidoscopy (04/26/17)----> 1. Colitis involving sigmoid, rectum- biopsies stricture in rectum descending colon looks normal 2. Retroflexed views revealed internal hemorrhoid 3. Revealed external hemorrhoids. Solumedrol. Canasa. Stool studies pending- no stools. Pathology pending. ESR 59. - Anemia, 10.8/33.1. (04/25) - Hypokalemia, Hyponatremia, mild. Per attending. - Anxiety, per attending. PLAN: - Okay to advance to regular diet - Cont. Solumedrol - Cont. Canasa - Cont. Protonix - Pt is on Remicade as outpatient, last dose April 07 - Monitor labs - Supportive care - Further recommendations to follow based on results of above Patient seen and examined by Dr. Chicas and myself and this note is written on her behalf (Tiara Thompson) Physician Comments seen, examined agree with above ok to dc home from gi point [facility] office gi will sign off (Charity Chicas MD) Tiara Thompson Apr 27, 2017 15:05 Charity Chicas MD Apr 27, 2017 16:07
[2017-04-27 16:04] VITALS: BP 130/69; PULSE 79; RESP 18; TEMP 98.4; O2SAT 99
[2017-04-27] MEDS: PANTOPRAZOLE SODIUM 40 MG VIAL IV PUSH SCH (17:17)
[2017-04-27 20:00] VITALS: BP 102/60; PULSE 82; RESP 16; TEMP 98.3; O2SAT 98
[2017-04-27] MEDS: MESALAMINE 1000 MG SUPP RECTAL SCH (20:33)
[2017-04-28] VITALS: BP 106/59; PULSE 76; RESP 16; TEMP 97.8; O2SAT 97
[2017-04-28 04:00] VITALS: BP 91/53; PULSE 80; RESP 18; TEMP 98.3; O2SAT 97
[2017-04-28] MEDS: SUCRALFATE 1 GM TAB PO SCH (06:11)
[2017-04-28] MEDS: metroNIDAZOLE 500 MG INJ 100 ML IV SCH (06:12)
[2017-04-28] MEDS: HYDROmorphone HCL 2 MG TAB PO PRN (06:17)
[2017-04-28 08:00] VITALS: BP 95/71; PULSE 82; RESP 16; TEMP 98.5; O2SAT 100
[2017-04-28] MEDS: methylPREDNISolone SOD SUCC 40 MG/1 ML VIAL IM SCH (08:44)
[2017-04-28] MEDS: DOCUSATE SODIUM 50 MG/SENNA 8.6 MG TAB PO SCH (08:44)
[2017-04-28] MEDS: SODIUM CHLORIDE 0.9% FLUSH 10 ML FLUSH IV FLUSH SCH (09:00)
--- NOTE | 2017-04-28 10:48 | HHI.PR ---
Subjective Remarks This is a pleasant 26 y/o Female with Ulcerative Colitis, presents to Emergency Room with Left lower abdominal pain She came to ER on 04/22/17 with Nausea and vomit and Diarrhea, she was given symptomatic medicine and was discharged Home and today came back to the Hospital with the same symptomatology. associated abdominal pain for the last 3 to 4 days She was seen at [facility] Room yesterday and was discharged home, she continue vomiting. The patient has been anxious and depressed, She has a [id number] baby. Upon asking mom said she has not been suicidal. She does have history of depression and anxiety and was supposed to be on Xanax and a lot of that was stopped during the and patient never resumed it since she does not have a primary care doctor. Vital signs are stable. The patient was seen in Emergency room in the presence of her mother Mrs. Tali Sorto, confirm what was expressed by her Daughter, she also states she had as GI specialist Doctor Gab De La Paz but now has not GI specialist due to that lost coverage asking for pain medicine. 04/25: Status post evaluation by GI specialist with diagnosis of Ulcerative colitis/Proctitis Flare with secondary Nausea, vomit and diarrhea abdominal pain, last dose of Remicade was April 07 2017, CT scan abdomen and pelvis with IV contrast (04/22/17)-----> abnormal bowel wall thickening seen circumferentially involving the rectum and adjacent inflammatory stranding and hyperemia. This is consistent with proctitis. No obvious abscess or free air. Clear liquids. Add Solu-Medrol. Add Mesalamine suppositories, status post Sigmoidoscopy found Colitis involving Sigmoid and rectum biopsy, stricture in rectum, Internal Hemorrhoids. 04/26: Seen in her bedroom in the presence of nurse Julian Gallito. 04/27: Stable no new issues, states she is feeling better, tolerating liquid diet wants to be advanced, will leave that decision to GI specialist. 04/28: Seen in her bedroom stable, no nausea, vomit or diarrhea, happy because is going home will follow with GI specialist Doctor Charity Chicas in one week. Objective Vital Signs Date Time Temp Pulse Resp B/P Pulse Ox O2 Delivery O2 Flow Rate FiO2 04/28/17 08:00 98.5 82 16 95/71 100 04/28/17 04:00 98.3 80 18 91/53 97 04/28/17 00:00 97.8 76 16 106/59 97 04/27/17 20:00 98.3 82 16 102/60 98 04/27/17 16:04 98.4 79 18 130/69 99 04/27/17 12:41 99.5 88 16 112/61 98 I/O 04/27/17 04/27/17 04/27/17 04/28/17 04/28/17 04/28/17 07:00 15:00 23:00 07:00 15:00 23:00 Intake Total 240 ml Balance 240 ml Intake Oral 240 ml # Voids 5 9 Result Diagram: 04/25/17 0604 04/26/17 0740 Imaging No imaging studies. Procedures None Other Results Laboratory Tests Test 04/24/17 04/24/17 04/25/17 04/26/17 09:59 11:20 06:04 07:40 Magnesium Level 2.2 MG/DL Lipase 270 U/L Urine Color LIGHT-YELLOW Urine Turbidity HAZY Urine pH 6.5 Urine Specific [place] 1.012 Urine Protein TRACE mg/dL Urine Glucose (UA) NEG mg/dL Urine Ketones 80 mg/dL Urine Occult Blood SMALL Urine Nitrite NEG Urine Bilirubin NEG Urine Urobilinogen LESS THAN 2.0 MG/DL Urine Leukocyte Esterase NEG Urine RBC LESS THAN 1 /hpf Urine WBC 2 /hpf Urine Squamous Epithelial 2 /hpf Cells Urine Transitional Epithelial <1 /hpf Cells Urine Bacteria RARE /hpf Urine Mucus FEW /lpf Microscopic Urinalysis Comment CULT NOT INDICATED Urine Opiates Screen NEG Urine Barbiturates Screen NEG Urine Amphetamines Screen NEG Urine Benzodiazepines Screen POS Urine Cocaine Screen NEG Urine Cannabinoids Screen NEG White Blood Count 8.0 TH/MM3 Red Blood Count 4.07 MIL/MM3 Hemoglobin 10.8 GM/DL Hematocrit 33.1 % Mean Corpuscular Volume 81.4 FL Mean Corpuscular Hemoglobin 26.6 PG Mean Corpuscular Hemoglobin 32.7 % Concent Red Cell Distribution Width 16.3 % Platelet Count 411 TH/MM3 Mean Platelet Volume 8.2 FL Neutrophils (%) (Auto) 53.5 % Lymphocytes (%) (Auto) 37.6 % Monocytes (%) (Auto) 8.6 % Eosinophils (%) (Auto) 0.1 % Basophils (%) (Auto) 0.2 % Neutrophils # (Auto) 4.3 TH/MM3 Lymphocytes # (Auto) 3.0 TH/MM3 Monocytes # (Auto) 0.7 TH/MM3 Eosinophils # (Auto) 0.0 TH/MM3 Basophils # (Auto) 0.0 TH/MM3 CBC Comment DIFF FINAL Differential Comment Erythrocyte Sedimentation Rate 59 mm/hr Sodium Level 135 MEQ/L Chloride Level 100 MEQ/L Carbon Dioxide Level 23.1 MEQ/L Anion Gap 12 MEQ/L Blood Urea Nitrogen 8 MG/DL Creatinine 0.54 MG/DL Estimat Glomerular Filtration 164 ML/MIN Rate Random Glucose 72 MG/DL Calcium Level 8.9 MG/DL Total Bilirubin 0.7 MG/DL Aspartate Amino Transf 10 U/L (AST/SGOT) Alanine Aminotransferase 18 U/L (ALT/SGPT) Alkaline Phosphatase 73 U/L C-Reactive Protein 0.38 MG/DL Total Protein 8.7 GM/DL Albumin 3.7 GM/DL Potassium Level 3.8 MEQ/L Objective Remarks GENERAL: This is a well-nourished, well-developed patient, in no apparent distress. SKIN: No rashes, ecchymoses or lesions. Cool and dry. HEAD: Atraumatic. Normocephalic. No temporal or scalp tenderness. EYES: Pupils equal round and reactive. Dry mucous membranes. ENT: Nose without bleeding, purulent drainage or septal hematoma. Throat without erythema, tonsillar hypertrophy or exudate. Uvula midline. Airway patent. NECK: Trachea midline. No JVD or lymphadenopathy. Supple, nontender, no meningeal signs. CARDIOVASCULAR: Regular rate and rhythm without murmurs, gallops, or rubs. RESPIRATORY: Clear to auscultation. Breath sounds equal bilaterally. No wheezes , rales, or rhonchi. GASTROINTESTINAL: Abdomen soft, non tender, positive bowel sounds. MUSCULOSKELETAL: Extremities without clubbing, cyanosis, or edema. NEUROLOGICAL: Awake and alert No focal deficits. Medications and IVs Current Medications Medications (Trade) Dose Ordered Sig/Uziel Route Start Time Stop Time Status Last Admin (NS 1000 ml Inj) 1,000 ml @ 100 mls/hr Q10H IV 04/24/17 12:09 04/27/17 09:18 (NS Flush) 2 ml UNSCH PRN IV FLUSH 04/24/17 12:15 (NS Flush) 2 ml BID IV FLUSH 04/24/17 21:00 04/25/17 19:55 (Tylenol) 650 mg Q4H PRN PO 04/24/17 12:15 (Zofran Inj) 4 mg Q6H PRN IVP 04/24/17 12:15 04/27/17 05:10 (Narcan Inj) 0.4 mg UNSCH PRN IV 04/24/17 12:15 (Pinky-Colace) 1 tab BID PO 04/24/17 21:00 04/28/17 08:44 (Milk Of Magnesia Liq) 30 ml Q12H PRN PO 04/24/17 12:15 (Senokot) 17.2 mg Q12H PRN PO 04/24/17 12:15 (Dulcolax Supp) 10 mg DAILY PRN RECTAL 04/24/17 12:15 (Lactulose Liq) 30 ml DAILY PRN PO 04/24/17 12:15 (Carafate) 1 gm ACHS PO 04/24/17 16:00 04/28/17 06:11 (KlonoPIN) 0.5 mg Q8HR PRN PO 04/24/17 12:30 04/27/17 09:47 (SoluMEDROL INJ) 40 mg DAILY IM 04/24/17 18:00 04/28/17 08:44 (Canasa Supp) 1,000 mg HS RECTAL 04/24/17 21:00 04/25/17 19:54 (Protonix Inj) 40 mg Q24H IV PUSH 04/24/17 18:00 04/27/17 17:17 Metoclopramide HCl 5 mg 5 mg Q8H PRN IV PUSH 04/24/17 17:30 04/26/17 08:30 (Flagyl 500 Mg Inj) 100 ml @ 100 mls/hr Q8H IV 04/24/17 21:00 04/28/17 06:12 (Dilaudid) 2 mg Q3H PRN PO 04/25/17 15:45 04/28/17 06:17 A/P Assessment and Plan 1. Ulcerative colitis/Proctitis Flare with secondary Nausea, vomit and diarrhea abdominal pain, last dose of Remicade was April 07 2017, CT scan abdomen and pelvis with IV contrast ()-----> abnormal bowel wall thickening seen circumferentially involving the rectum and adjacent inflammatory stranding and hyperemia. This is consistent with proctitis. No obvious abscess or free air. Clear liquids. Add Solu-Medrol. Add Mesalamine suppositories, status post Sigmoidoscopy found Colitis involving Sigmoid and rectum biopsy, stricture in rectum, Internal Hemorrhoids. pain medicine continue. Improving condition okay to discharge on Prednisone recommended Conversion from Solu-Medrol 40 mg IV to 50 mg of Prednisone daily will need to titrate down 5 to 10 mg weekly until she is on 20 mg daily and continue titration by GI specialist Continue Mesalamine and titrate by GI specialist. will continue Pain medicine and PPIs. 2. Dehydration giving IV fluids and Electrolyte derangement replaced. DVT prophylaxis with SCDs Code Status Full Code. Discussed Condition With Patient, all questions answered to the best of my abilities. Discharge Planning Discharge Home. Florentin Pierson MD Apr 28, 2017 10:48
[2017-04-28] MEDS ORDERED: DILA2TAB2 PO (11:07)
[2017-04-28] MEDS ORDERED: CANA10002 RECTAL (11:07)
[2017-04-28] MEDS ORDERED: PRED10 PO (11:07)
[2017-04-28] MEDS ORDERED: METR-1 PO (11:07)
[2017-04-28] MEDS ORDERED: PROT40TA PO (11:07)
[2017-04-28 12:00] VITALS: BP 105/50; PULSE 71; RESP 16; TEMP 97.4; O2SAT 100
--- NOTE | 2017-04-28 13:18 | HHI.DS ---
Discharge Summary Admission Date Apr 24, 2017 at 12:11 Discharge Date: Apr 28, 2017 Admitting Diagnosis intractable vomiting and abdominal pain, dehydration (1) Ulcerative colitis ICD Code: K51.90 Diagnosis: Principal (2) Dehydration ICD Code: E86.0 Diagnosis: Principal (3) Failure of outpatient treatment ICD Code: Z78.9 Diagnosis: Principal (4) Nausea & vomiting ICD Code: R11.2 Diagnosis: Principal (5) Proctitis ICD Code: K62.89 Diagnosis: Principal Procedures Sigmoidoscopy Brief History - From Admission This is a pleasant 26 y/o Female with Ulcerative Colitis, presents to Emergency Room with Left lower abdominal pain She came to ER on 04/22/17 with Nausea and vomit and Diarrhea, she was given symptomatic medicine and was discharged Home and today came back to the Hospital with the same symptomatology. associated abdominal pain for the last 3 to 4 days She was seen at [facility] Emergency Room yesterday and was discharged home, she continue vomiting. The patient has been anxious and depressed, She has a [id number] baby. Upon asking mom said she has not been suicidal. She does have history of depression and anxiety and was supposed to be on Xanax and a lot of that was stopped during the and patient never resumed it since she does not have a primary care doctor. Vital signs are stable. The patient was seen in Emergency room in the presence of her mother Mrs. Tali Sorto, confirm what was expressed by her Daughter, she also states she had as GI specialist Doctor Gab De La Paz but now has not GI specialist due to that lost coverage asking for pain medicine. CBC/BMP: 04/25/17 0604 04/26/17 0740 Imaging No Imaging studies performed. PE at Discharge GENERAL: This is a well-nourished, well-developed patient, in no apparent distress. SKIN: No rashes, ecchymoses or lesions. Cool and dry. HEAD: Atraumatic. Normocephalic. No temporal or scalp tenderness. EYES: Pupils equal round and reactive. Dry mucous membranes. ENT: Nose without bleeding, purulent drainage or septal hematoma. Throat without erythema, tonsillar hypertrophy or exudate. Uvula midline. Airway patent. NECK: Trachea midline. No JVD or lymphadenopathy. Supple, nontender, no meningeal signs. CARDIOVASCULAR: Regular rate and rhythm without murmurs, gallops, or rubs. RESPIRATORY: Clear to auscultation. Breath sounds equal bilaterally. No wheezes , rales, or rhonchi. GASTROINTESTINAL: Abdomen soft, non tender, positive bowel sounds. MUSCULOSKELETAL: Extremities without clubbing, cyanosis, or edema. NEUROLOGICAL: Awake and alert No focal deficits. Hospital Course This is a pleasant 26 y/o Female with Ulcerative Colitis, presents to Emergency Room with Left lower abdominal pain She came to ER on 04/22/17 with Nausea and vomit and Diarrhea, she was given symptomatic medicine and was discharged Home and today came back to the Hospital with the same symptomatology. associated abdominal pain for the last 3 to 4 days She was seen at [facility] Emergency Room yesterday and was discharged home, she continue vomiting. The patient has been anxious and depressed, She has a [id number] baby. Upon asking mom said she has not been suicidal. She does have history of depression and anxiety and was supposed to be on Xanax and a lot of that was stopped during the and patient never resumed it since she does not have a primary care doctor. Vital signs are stable. The patient was seen in Emergency room in the presence of her mother Mrs. Tali Sorto, confirm what was expressed by her Daughter, she also states she had as GI specialist Doctor Gab De La Paz but now has not GI specialist due to that lost coverage asking for pain medicine. 04/25: Status post evaluation by GI specialist with diagnosis of Ulcerative colitis/Proctitis Flare with secondary Nausea, vomit and diarrhea abdominal pain, last dose of Remicade was April 07 2017, CT scan abdomen and pelvis with IV contrast (04/22/17)-----> abnormal bowel wall thickening seen circumferentially involving the rectum and adjacent inflammatory stranding and hyperemia. This is consistent with proctitis. No obvious abscess or free air. Clear liquids. Add Solu-Medrol. Add Mesalamine suppositories, status post Sigmoidoscopy found Colitis involving Sigmoid and rectum biopsy, stricture in rectum, Internal Hemorrhoids. 04/26: Seen in her bedroom in the presence of nurse Mr. Conti. 04/27: Stable no new issues, states she is feeling better, tolerating liquid diet wants to be advanced, will leave that decision to GI specialist. 04/28: Seen in her bedroom stable, no nausea, vomit or diarrhea, happy because is going home will follow with GI specialist Doctor Charity Chicas in one week. Assessment and Plan 1. Ulcerative colitis/Proctitis Flare with secondary Nausea, vomit and diarrhea abdominal pain, last dose of Remicade was April 07 2017, CT scan abdomen and pelvis with IV contrast ()-----> abnormal bowel wall thickening seen circumferentially involving the rectum and adjacent inflammatory stranding and hyperemia. This is consistent with proctitis. No obvious abscess or free air. Clear liquids. Add Solu-Medrol. Add Mesalamine suppositories, status post Sigmoidoscopy found Colitis involving Sigmoid and rectum biopsy, stricture in rectum, Internal Hemorrhoids. pain medicine continue. Improving condition okay to discharge on Prednisone recommended Conversion from Solu-Medrol 40 mg IV to 50 mg of Prednisone daily will need to titrate down 5 to 10 mg weekly until she is on 20 mg daily and continue titration by GI specialist Continue Mesalamine and titrate by GI specialist. will continue Pain medicine and PPIs. Flagyl 500 mg TID for 10 more days. 2. Dehydration giving IV fluids and Electrolyte derangement replaced. DVT prophylaxis with SCDs Code Status Full Code. Discussed Condition With Patient, all questions answered to the best of my abilities. Discharge Planning Discharge Home. Pt Condition on Discharge: Good Discharge Disposition: Discharge Home Discharge Time: > 30 minutes Discharge Instructions DIET: Follow Instructions for: As Tolerated, No Restrictions Activities you can perform: Regular-No Restrictions Florentin Pierson MD Apr 28, 2017 13:18
== END 2017-04-28 14:12 | disposition home or self-care (01) ==
LOC: NEPD 09:10 → NEDA 12:11 → INTOOBSV 12:11 → N05B 14:41
PROVIDERS: ADMIT Internal Medicine; ATTEND Internal Medicine
DX: K51.819 Other ulcerative colitis with unspecified complications (principal); K64.4 Residual hemorrhoidal skin tags; K64.8 Other hemorrhoids; K62.4 Stenosis of anus and rectum; E87.1 Hypo-osmolality and hyponatremia; K29.00 Acute gastritis without bleeding; G43.A1 Cyclical vomiting, in migraine, intractable; E86.0 Dehydration; E87.6 Hypokalemia; R82.4 Acetonuria
CPT/HCPCS: 00810; 45331; 74177; 80053; 80307; 81001; 83690; 83735; 84132; 84703; 85025; 85610; 85652; 85730; 86140; 88305; 96374; 99285; C9113; G0378; J2060; J2270; J2405; J2765; J2920; J3480; J7030; Q0169; Q9967

== ENCOUNTER 2018-01-01 03:08 | Emergency (ER) | payer SELFPAY ==
[~2018-01-01] VITALS: Ht 162.6 cm; Wt 55.0 kg
[~2018-01-01 03:08] MED LIST changes: +CANA10002 RECTAL; -TYLETAB34 PO; -ZOFR4TAB PO
[2018-01-01 03:23] VITALS: BP 139/62; PULSE 94; RESP 18; TEMP 98.7; O2SAT 100
== END 2018-01-01 05:33 | disposition left against medical advice (07) ==
LOC: NED 03:08
DX: R10.9 Unspecified abdominal pain (principal); Z53.21 Procedure and treatment not carried out due to patient leaving prior to being seen by health care provider
CPT/HCPCS: 99281